=== PATIENT | female | born 1990 | race Caucasian/White ===

== ENCOUNTER 2016-04-15 10:58 | Outpatient (CLI) | payer OTHER | END 2016-04-15 10:59 | disposition home or self-care (01) | DX: Z13.29 Encounter for screening for other suspected endocrine disorder (principal) ==

== ENCOUNTER 2016-05-15 09:14 | Outpatient (CLI) | payer OTHER | END 2016-05-15 09:15 | disposition home or self-care (01) | DX: Z36 Encounter for antenatal screening of mother (principal) ==

== ENCOUNTER 2016-05-29 10:33 | Outpatient (CLI) | payer OTHER | END 2016-05-29 10:34 | disposition home or self-care (01) | DX: Z36 Encounter for antenatal screening of mother (principal); Z84.81 Family history of carrier of genetic disease ==

== ENCOUNTER 2016-08-07 07:39 | Outpatient (CLI) | payer OTHER | END 2016-08-07 07:40 | disposition home or self-care (01) | DX: Z36 Encounter for antenatal screening of mother (principal) ==

== ENCOUNTER 2016-08-28 08:29 | Outpatient (CLI) | payer OTHER ==
[2016-08-28 08:35] LABS: HCT - HEMATOCRIT 35.5 % (37.0-47.0); HGB - HEMOGLOBIN 11.9 g/dL (12.0-16.0); MEAN CORPUSCULAR HGB CONC 33.5 g/dL (32.0-36.0); MEAN CORPUSCULAR VOLUME 80.8 fL (81.0-99.0); MEAN PLATELET VOLUME 6.6 fL (7.9-10.8); RED BLOOD COUNT 4.39 10^6/uL (4.20-5.40); RED CELL DISTRIBUTION WIDTH 13.7 % (12.0-15.0); WHITE BLOOD COUNT 12.4 x10^3/uL (4.8-10.8)
[2016-08-28 09:53] LABS: THYROID STIMULATING HORMONE 0.76 uIU/mL (0.34-5.60)
--- NOTE | 2016-08-28 10:44 | Ultrasound Report ---
THYROID ULTRASOUND: 08/28/2016 CLINICAL INDICATION: Followup goiter. COMPARISON: 11/08/2015 TECHNIQUE: Real-time scanning was performed with sales representative advertising static images obtained. FINDINGS: The right lobe now measures 6.1 x 3.2 x 2.5 cm, and the left lobe measures 5.7 x 2.6 x 2.3 cm. The isthmus measures 5 mm. The left lobe again demonstrates diffuse heterogeneity. The previously noted nodule in the right lobe has increased in size, now measuring 3.3 x 2.8 x 2.4 cm (previously 2.9 x 2.4 x 2.1 cm). Nodularity in the isthmus appears stable. IMPRESSION: INCREASE IN SIZE OF THE LARGEST NODULE IN THE LOWER POLE OF THE RIGHT LOBE. STABLE DIFFUSE MULTINODULAR CHANGES IN THE LEFT LOBE. JOB #: [id number] EXT JOB #: [id number] LILY
== END 2016-08-28 08:30 | disposition home or self-care (01) ==
LOC: DI 08:29
PROVIDERS: ATTEND Obstetrics & Gynecology
DX: E04.2 Nontoxic multinodular goiter (principal)
CPT/HCPCS: 36415; 76536; 82950; 84439; 84443; 84481; 86850

== ENCOUNTER 2016-11-19 17:00 | Outpatient (CLI) | payer OTHER | END 2016-11-19 17:01 | LOC: LAB.R 17:00 | PROVIDERS: ATTEND Obstetrics & Gynecology | DX: Z36 Encounter for antenatal screening of mother (principal) | CPT/HCPCS: 87081 ==

== ENCOUNTER 2016-12-05 07:26 | Inpatient (IN) | payer OTHER ==
[2016-12-05] MEDS ORDERED: ACETAMINOPHEN 325 MG TABLET PO PRN (07:30)
[2016-12-05] MEDS ORDERED: fentaNYL 100 MCG/2 ML VIAL IVP PRN (07:30)
[2016-12-05] MEDS ORDERED: SODIUM CHLORIDE FLUSH 0.9% 10 ML SYRINGE IVP PRN (07:30)
[2016-12-05] MEDS ORDERED: ONDANSETRON 4 MG/2 ML VIAL IVP PRN ×2 (07:30→15:39)
--- NOTE | 2016-12-05 07:33 | HISTORY & PHYSICAL EXAMINATION ---
DATE OF ADMISSION: 12/05/2016 DATE OF ADMISSION/SURGERY: 12/05/2016. IDENTIFICATION: A 26-year-old G2, P1-0-0-1 with a 38 and 0/7th week intrauterine , EDC is 12/18/2016 consistent with a 9 week ultrasound. HISTORY OF PRESENT ILLNESS: This is a patient of [facility] who presents today for her routine visit. She has been having consistent visits with us since 9 weeks gestation. Patient's history is significant for chronic hypertension. With her first , she was induced at 37 weeks secondary to gestational hypertension. Of note, she did have a shoulder dystocia and the baby did require prolonged resuscitation. The patient felt that the baby had and she was not given proper education into the status of the baby. Because of this she has had significant anxiety throughout this . Her baby, Kaela, did well, did not have any shoulder fracture nor other neurological problems from delivery. At today's visit the patient has been anxious appropriately. She has been increased on her sertraline to 50 mg 1 tab p.o. daily. Baby boy, Tung, has been moving well. She denies any loss of fluid or vaginal bleeding. She has been having irregular contractions. The patient has been sleeping quite poorly the last few days. On today's visit, her blood pressure has been noted to be elevated. It was 148/102 and then repeat 10 minutes later is 138/98. She denies any preeclampsia symptoms including visual changes, headaches, or right upper quadrant pain. On examination, her cervix was 3 cm dilated, 60% effaced, and -2 station. On ultrasound, the baby is vertex with an ALFONZO of 17.68 cm. EFW is 3419 grams or 7 pounds 9 ounces. I discussed with the patient that given her recent elevation in her blood pressure that we should proceed with induction of labor. She is in agreement with that and we will plan for induction of labor on 2016. Unfortunately, since we have 3 patients, we do not have the nursing staff to induce her. She is to come in sooner, however, should she have any signs of superimposed preeclampsia or labor. PAST MEDICAL HISTORY: 1. Gestational hypertension. 2. related GERD. 3. Multinodular thyroid. PAST SURGICAL HISTORY: None. ALLERGIES: NO KNOWN DRUG ALLERGIES. MEDICATIONS: 1. Sertraline 50 mg. 1 tab p.o. daily. 2. vitamins 1 tab p.o. daily. 3. Zantac 150 mg 1 tab p.o. BID. SOCIAL HISTORY: She denies any tobacco, alcohol or illicit drug use. The patient is to Yobani and they have a 3-year-old daughter, Kaela. This is a male with anticipated name of [facility] is her pharmacy of choice. PAST OBSTETRICAL HISTORY: One term vaginal delivery at 37 weeks with shoulder dystocia. Induction secondary to gestational hypertension. The baby girl, Kaela, weighed 3317 grams. She did receive an epidural for pain relief. PAST GYNECOLOGICAL HISTORY: She denies any abnormal Pap smears or sexually transmitted diseases. The patient has had a recurrent left Bartholin cyst abscess. She underwent an excision of the cyst and so far has been asymptomatic. FAMILY HISTORY: Her sister has asthma and cystic fibrosis. REVIEW OF SYSTEMS: She denies any diabetes or thyroid issues. She only has hypertension in . Otherwise, within normal limits. OBJECTIVE: VITAL SIGNS: Weight is 119 pounds. Height is 64 inches. BMI of 37.6, blood pressure 139/98. GENERAL: The patient is a well-developed, well-nourished female in no apparent distress. She is alert and oriented x3. HEENT: Within normal limits. She does wear glasses. CARDIOVASCULAR: Rate is regular, no murmurs or rubs. PULMONARY: Lungs clear to auscultation bilaterally. ABDOMEN: Gravid, nontender. LABORATORY DATA: labs reveal she is B positive, GC and chlamydia are negative, thyroid function testing is within normal limits, RPR nonreactive, Hep B surface antigen is negative, HIV is negative, rubella immune, 1 hr GTT 133 , and GBS is negative. anatomical survey ultrasound is consistent with dates and within normal limits, posterior placenta, cervical length is 4.7 cm. ALFONZO is 9.3 cm and a 3 vessel umbilical cord is noted. ASSESSMENT: 1. A 26-year-old G2, P1-0-0-1 with a 38-1/7-week intrauterine . 2. Chronic hypertension recently elevated. 3. Favorable cervix. 4. History of shoulder dystocia. PLAN: 1. Will proceed to Pitocin induction of labor tomorrow on 12/05/2016. 2. Epidural for pain control. 3. Expect spontaneous vaginal delivery, but prepare for shoulder dystocia. JOB #: [id number] EXT JOB #:[id number] MTDD
[2016-12-05 08:02] LABS: BASOPHILS % (AUTO) 0.5 %; EOSINOPHILS # (AUTO) 0.3 10^3/uL (0.0-0.7); EOSINOPHILS % (AUTO) 2.7 %; HCT - HEMATOCRIT 37.4 % (37.0-47.0); HGB - HEMOGLOBIN 12.3 g/dL (12.0-16.0); LYMPHOCYTES # (AUTO) 2.3 10^3/uL (1.5-3.5); LYMPHOCYTES % (AUTO) 23.8 %; MEAN CORPUSCULAR HEMOGLOBIN 26.6 pg (27.0-31.0); MEAN CORPUSCULAR VOLUME 80.7 fL (81.0-99.0); MEAN PLATELET VOLUME 6.5 fL (7.9-10.8); MONOCYTES # (AUTO) 0.6 10^3/uL (0.0-1.0); NEUTROPHILS # (AUTO) 6.5 10^3/uL (1.5-6.6); RED BLOOD COUNT 4.63 10^6/uL (4.20-5.40); RED CELL DISTRIBUTION WIDTH 14.8 % (12.0-15.0); UNCORRECTED WHITE BLOOD COUNT 9.6 x10^3/uL; WHITE BLOOD COUNT 9.6 x10^3/uL (4.8-10.8)
[2016-12-05] MEDS: LACTATED RINGERS 1,000 ML IV SCH ×2 (08:56→20:05)
[2016-12-05] MEDS ORDERED: OXYTOCIN/LACTATED RINGERS 250 ML IV SCH (09:00)
[2016-12-05] MEDS ORDERED: SERTRALINE 50 MG TABLET PO SCH (09:00)
--- NOTE | 2016-12-05 09:13 | PROVIDER PROGRESS NOTE ---
Labor Progress Note - Uterine Monitoring Uterine Monitoring Mode: positive: External toco Contraction Frequency (min/apart): >Q6 min Contraction Intensity: positive: Mild to moderate Uterine Resting Tone: positive: Soft - Monitoring Monitor Mode: positive: External ultrasound Heart Rate Variability: positive: Moderate (6-25 bmp) Accelerations: positive: Present, 15x15 Decelerations: positive: None Strip Review: positive: Category I - Vaginal Exam Dilation (in cm): 3 Effacement (%): 70 Station: -2 Cervical Position: Anterior - Labor Progress Note Labor Progress Note/Additional Text: 26 yo with a 38w1d IUP Chronic HTN, no signs of superimposed pre-eclampsia Reassuring maternal and status Pitocin started Epidural PRN Expect but prepare for shoulder dystocia Labs, EKG, Meds, Allergy - Lab Results Fish Bones: 12/05/16 07:52 Other Lab Results: Lab Results x24hrs 12/05/16 Range/Units 07:52 WBC 9.6 (4.8-10.8) x10^3/uL RBC 4.63 (4.20-5.40) 10^6/uL Hgb 12.3 (12.0-16.0) g/dL Hct 37.4 (37.0-47.0) % MCV 80.7 L (81.0-99.0) fL MCH 26.6 L (27.0-31.0) pg MCHC 33.0 (32.0-36.0) g/dL RDW 14.8 (12.0-15.0) % Plt Count 169 (130-450) 10^3/uL MPV 6.5 L (7.9-10.8) fL Neut # 6.5 (1.5-6.6) 10^3/uL Lymph # 2.3 (1.5-3.5) 10^3/uL [place] # 0.6 (0.0-1.0) 10^3/uL Eos # 0.3 (0.0-0.7) 10^3/uL Baso # 0.0 (0.0-0.1) 10^3/uL Absolute Nucleated RBC 0.00 x10^3/uL Nucleated RBCs 0.0 /100WBC
--- NOTE | 2016-12-05 11:03 | PROVIDER PROGRESS NOTE ---
Labor Progress Note - Uterine Monitoring Uterine Monitoring Mode: positive: External toco Contraction Frequency (min/apart): Q4 min Contraction Intensity: positive: Moderate - Monitoring Monitor Mode: positive: External ultrasound Heart Rate Baseline: 130 Heart Rate Variability: positive: Moderate (6-25 bmp) Accelerations: positive: Present, 15x15 Decelerations: positive: None Strip Review: positive: Category I - Labor Progress Note Labor Progress Note/Additional Text: 26 yo with a 39w1d IUP Currently controlled chronic HTN ROM- clear On pitocin- 7 millunits/min Epidural PRN Continue pitocin Expect but prepare for shoulder dystocia
--- NOTE | 2016-12-05 12:30 | PROVIDER PROGRESS NOTE ---
Labor Progress Note - Uterine Monitoring Uterine Monitoring Mode: positive: External toco Contraction Frequency (min/apart): Q3-4 (pit 13 milliunits/min) Contraction Intensity: positive: Moderate to strong Uterine Resting Tone: positive: Soft - Monitoring Monitor Mode: positive: External ultrasound Heart Rate Variability: positive: Moderate (6-25 bmp) Accelerations: positive: Present, 15x15 Decelerations: positive: None Strip Review: positive: Category I - Labor Progress Note Labor Progress Note/Additional Text: 26 yo with a 38w1d IUP AROM- clear Stable chronic HTN Continue pitocin Epidural PRN Expect
[2016-12-05] MEDS ORDERED: SODIUM CHLORIDE FLUSH 0.9% 10 ML SYRINGE IVP SCH (14:00)
--- NOTE | 2016-12-05 14:52 | PROVIDER PROGRESS NOTE ---
Labor Progress Note - Uterine Monitoring Uterine Monitoring Mode: positive: External toco Contraction Frequency (min/apart): Q2 min (pit at 17 milliunits/min) Contraction Intensity: positive: Strong Uterine Resting Tone: positive: Soft - Monitoring Monitor Mode: positive: External ultrasound Heart Rate Baseline: 140's Heart Rate Variability: positive: Moderate (6-25 bmp) Accelerations: positive: Present, 15x15 Decelerations: positive: None Strip Review: positive: Category I - Vaginal Exam Dilation (in cm): 6 Effacement (%): 70 Station: -2 Cervical Position: Midposition - Labor Progress Note Labor Progress Note/Additional Text: 26 yo with a 38w1d IUP Controlled chronic HTN Reassuring maternal and status Active labor Continue pitocin Epidural now Expect
[2016-12-05] MEDS ORDERED: fent/BUPIV 2 MCG/0.125% 250 ML EP ONE (15:29)
--- NOTE | 2016-12-05 15:37 | PROVIDER PROGRESS NOTE ---
Labor Progress Note - Uterine Monitoring Uterine Monitoring Mode: positive: External toco Contraction Frequency (min/apart): Q2-3 (Pit 17 milliunits/min) Contraction Intensity: positive: Strong Uterine Resting Tone: positive: Soft - Monitoring Monitor Mode: positive: External ultrasound Heart Rate Baseline: 130's Heart Rate Variability: positive: Moderate (6-25 bmp) Accelerations: positive: Present, 15x15 Decelerations: positive: None Strip Review: positive: Category I - Labor Progress Note Labor Progress Note/Additional Text: 26 yo with a 38w1d IUP Active labor Reassuring heart tones Stable chronic HTN Continue pitocin Epidural in place and working well Expect but prepare for shoulder dystocia L&D Objective - Patient Data Reviewed Vital Signs: Yes Weight: Weight 12/03/16 12/04/16 12/05/16 23:59 23:59 23:59 Weight (kg) 99.337 kg Intake & Output: Intake and Output Totals x24h 12/03/16 12/04/16 12/05/16 23:59 23:59 23:59 Intake Total 800 Balance 800 - Lab Results Lab Results: 12/05/16 07:52 Other Lab Results: Lab Results x24hrs 12/05/16 Range/Units 07:52 WBC 9.6 (4.8-10.8) x10^3/uL RBC 4.63 (4.20-5.40) 10^6/uL Hgb 12.3 (12.0-16.0) g/dL Hct 37.4 (37.0-47.0) % MCV 80.7 L (81.0-99.0) fL MCH 26.6 L (27.0-31.0) pg MCHC 33.0 (32.0-36.0) g/dL RDW 14.8 (12.0-15.0) % Plt Count 169 (130-450) 10^3/uL MPV 6.5 L (7.9-10.8) fL Neut # 6.5 (1.5-6.6) 10^3/uL Lymph # 2.3 (1.5-3.5) 10^3/uL [place] # 0.6 (0.0-1.0) 10^3/uL Eos # 0.3 (0.0-0.7) 10^3/uL Baso # 0.0 (0.0-0.1) 10^3/uL Absolute Nucleated RBC 0.00 x10^3/uL Nucleated RBCs 0.0 /100WBC - Current Medication Orders Current Medication Orders: Current Medications Generic Name Dose Route Start Last Admin Trade Name Freq PRN Reason Stop Dose Admin Lactated Ringer's 1,000 mls @ 100 mls/hr 12/05/16 08:00 12/05/16 08:56 Lr IV 100 mls/hr .Q10H KAYCEE Administration Oxytocin/Lactated Ringer's 250 mls @ 1 mls/hr 12/05/16 09:00 12/05/16 13:05 Pitocin/Lactated Ringers IV 17 milliunit/min TITR KAYCEE Titration Protocol 1 MILLIUNIT/MIN Ranitidine HCl 150 mg 12/05/16 09:00 12/05/16 10:10 Zantac PO Not Given BID KAYCEE Sertraline HCl 50 mg 12/05/16 09:00 12/05/16 10:10 Zoloft PO Not Given DAILY KAYCEE Sodium Chloride 10 ml 12/05/16 07:30 12/05/16 08:56 Normal Saline Flush 0.9% IVP 10 ml PRN PRN Administration NEEDED PER PROVIDER ORDERS
[2016-12-05] MEDS ORDERED: NALOXONE 0.4 MG/ML VIAL IVP PRN (15:39)
[2016-12-05] MEDS ORDERED: diphenhydrAMINE INJ 50 MG/ML VIAL IVP PRN (15:39)
[2016-12-05] MEDS ORDERED: ePHEDrine 50 MG/ML VIAL IVP PRN (15:39)
[2016-12-05] MEDS ORDERED: LACTATED RINGERS 500 ML IV ONE (15:39)
[2016-12-05] MEDS ORDERED: NALBUPHINE 20 MG/ML AMP IVP PRN (15:39)
[2016-12-05] MEDS ORDERED: fent/BUPIV 2 MCG/0.125% 250 ML EP PRN (15:39)
[2016-12-05] MEDS ORDERED: METOCLOPRAMIDE 10 MG/2 ML VIAL IVP PRN (15:39)
--- NOTE | 2016-12-05 18:14 | PROVIDER PROGRESS NOTE ---
Labor Progress Note - Uterine Monitoring Uterine Monitoring Mode: positive: External toco Contraction Frequency (min/apart): Q2-4 min Contraction Intensity: positive: Moderate to strong Uterine Resting Tone: positive: Soft - Monitoring Monitor Mode: positive: External ultrasound Heart Rate Baseline: 130's Heart Rate Variability: positive: Moderate (6-25 bmp) Accelerations: positive: Present, 15x15 Decelerations: positive: None Strip Review: positive: Category I - Vaginal Exam Dilation (in cm): 8 Effacement (%): 70 Station: -1 Cervical Position: Anterior - Labor Progress Note Labor Progress Note/Additional Text: 26 yo with a 38w1d IUP Active labor Reassuring and maternal status Controlled chronic hypertension Epidural in place and working well Bladder emptied Patient resting Continue pitocin Expect but prepare for shoulder dystocia
--- NOTE | 2016-12-05 20:02 | PROVIDER PROGRESS NOTE ---
Labor Progress Note - Uterine Monitoring Uterine Monitoring Mode: positive: External toco Contraction Frequency (min/apart): Q2 min (13 milliunits/min) Contraction Intensity: positive: Moderate to strong Uterine Resting Tone: positive: Soft - Monitoring Monitor Mode: positive: External ultrasound Heart Rate Variability: positive: Moderate (6-25 bmp) Accelerations: positive: Present, 15x15 Decelerations: positive: None Strip Review: positive: Category I - Vaginal Exam Dilation (in cm): 8 Effacement (%): 70 Station: -1 - Labor Progress Note Labor Progress Note/Additional Text: 26 yo with a 38w1d IUP Active labor Stable chronic hypertension Epidural in place and working well Pitocin decreased after late decel noted. Decels resolved after moving positions with bottom higher and decreased pitocin Concerning that baby is still high in the pelvis; baby probably OP Continue to rotate Continue pitocin Continue epidural Watch descent carefully
[2016-12-05] MEDS ORDERED: MINERAL OIL LIGHT 10 ML MC ONE (21:22)
[2016-12-05] MEDS ORDERED: LIDOCAINE 1% 50 ML MDV ONE (21:22)
--- NOTE | 2016-12-05 22:29 | DELIVERY NOTE ---
Delivery Note - Labor Labor: positive: Augmented by oxytocin, Induced by ARM, Induced by oxytocin - Delivery Method Infant Delivery Method: positive: Other (Vaginal delivery with 30 second shoulder dystocia. Relieved with Huy and posterior arm extraction of the right arm. [place].) - Presentation Presentation: positive: Vertex, [place] - left occiput anterior - Nuchal Cord Nuchal Cord: positive: None - Amniotic Fluid Description Amniotic Fluid Description: positive: Clear - Episiotomy Type Episiotomy Type: positive: None - Laceration Laceration: positive: None - Delivery Outcome Delivery Outcome: positive: Livebirth - [place] : positive: Placed in direct skin contact with mother, Bulb syringe, Stimulated sex: positive: Male : 7 : 9 - Cord Cord: positive: 3 vessels - Placenta Placenta: positive: Intact, Spontaneous - Estimated Blood Loss Estimated Blood Loss (in cc): 250 - Post Delivery Events Post Delivery Events: positive: No post delivery events - Delivery Comments (Free Text/Narrative) Delivery Comments (Free Text/Narrative): 26 yo with a 38w1d IUP presented to L&D for an induction of labor. BP's elevated from yesterday's OB visit. Highest diastolic in low 100's. Initial CVE 2/60/-2 so pitocin started. AROM with clear fluid. Epidural for pain control. Baby OP so patient rotated to extreme left side, then hands and knees. Baby finally descended after rotation. head delivered [place] with 30 second shoulder dystocia; relieved with Huy and posterior arm extraction of right arm. No nuchal cord. Baby bulb suctioned and stimulated. Apgars 7/9. Weight 8 lbs 7.7 oz or 3848 gm. Placenta delivered spontaneously, intact, 3VC. No vaginal lacerations. EBL 250 mL. No complications.
[2016-12-05] MEDS ORDERED: HYDROcod/ACETAM 5/325 MG TABLET PO PRN (22:31)
[2016-12-05] MEDS ORDERED: WITCH HAZEL/GLYCERIN 1 EACH MED..PAD TOP PRN (22:31)
[2016-12-05] MEDS ORDERED: HYDROCORTISONE 1% CREAM 28 GM TUBE PR PRN (22:31)
[2016-12-05] MEDS ORDERED: MAGNESIUM HYDROXIDE 2,400 MG/30 ML UDC PO PRN (22:31)
[2016-12-05] MEDS ORDERED: HYDROCORTISONE/PRAMOXINE 10 GM PR PRN (22:31)
[2016-12-05] MEDS ORDERED: OXYTOCIN/LACTATED RINGERS 250 ML IV ONE (22:31)
[2016-12-06] MEDS ORDERED: SIMETHICONE CHEW 80 MG TABLET PO SCH (06:00)
[2016-12-06] MEDS ORDERED: CELECOXIB 100 MG CAPSULE PO ONE ×2 (06:06→06:08)
[2016-12-06] MEDS: CELECOXIB 100 MG CAPSULE PO SCH ×2 (06:25→06:26)
[2016-12-06] MEDS ORDERED: DOCUSATE SODIUM 100 MG CAPSULE PO SCH (09:00)
[2016-12-06] MEDS ORDERED: RANITIDINE 150 MG PO SCH (09:00)
[2016-12-06] MEDS ORDERED: IBUPROFEN 600 MG TABLET PO PRN (10:43)
[2016-12-06 14:20] VITALS: BP 126/73
--- NOTE | 2016-12-06 14:28 | PROVIDER PROGRESS NOTE ---
Subjective - General Admit Date: 12/05/16 Procedure Date: 12/05/16 Post Op Days: 1 Procedure Performed: - Review of Systems General: positive: No symptoms (Pain 0/10. Frank LOWE or scotoma. Breast feeding. MIrena for contraception) Gastrointestinal: positive: Flatus Genitourinary: positive: No symptoms Psychiatric: positive: No symptoms. negative: Confusion Objective - Patient Data Reviewed Vital Signs: Yes Vital Signs: Vital Signs x48h Temp Pulse Resp BP Pulse Ox 12/06/16 14:20 126/73 12/06/16 08:45 36.5 C 98 18 148/87 H 100 Weight: Weight 12/04/16 12/05/16 12/06/16 23:59 23:59 23:59 Weight (kg) 99.337 kg Intake & Output: Intake and Output Totals x24h 12/04/16 12/05/16 12/06/16 23:59 23:59 23:59 Intake Total 3250 1200 Output Total 105 1850 Balance 3145 -650 - Lab Results Lab Results: 12/05/16 07:52 - Current Medications Current Medications: Current Medications Generic Name Dose Route Start Last Admin Trade Name Freq PRN Reason Stop Dose Admin Docusate Sodium 100 mg 12/06/16 09:00 12/06/16 08:42 Colace 100mg Capsule PO 100 mg BID KAYCEE Administration Hydrocortisone/Pramoxine 1 spray 12/05/16 22:31 12/06/16 00:45 Epifoam [place] 1 spray QID PRN Administration Hemorrhoids Ibuprofen 600 mg 12/06/16 10:43 12/06/16 10:54 Motrin PO 600 mg Q6HR PRN Administration PAIN Ranitidine [Zantac] 1 each 12/06/16 09:00 12/06/16 12:47 150 Mg PO Not Given DAILY KAYCEE Simethicone 80 mg 12/06/16 06:00 12/06/16 06:11 Mylicon PO Not Given TID [facility] Witch Aisha/Glycerin 1 each 12/05/16 22:31 12/06/16 00:53 Tucks TOP 1 each QID PRN Administration Hemorrhoids - Physical Exam General Appearance: positive: No acute distress, Alert Eyes Bilateral: positive: Normal inspection Respiratory: positive: Chest non-tender, No respiratory distress, Breath sounds nml Cardiovascular: positive: Regular rate & rhythm, No murmur Abdomen: positive: Non-tender, Nml bowel sounds, Mass (at U) Skin: positive: Color nml, No rash, Warm, Dry Extremities: negative: Calf tenderness, Perfecto's sign/cords Neurologic/Psychiatric: positive: Oriented x3 Impression/Plan - Problem List Problem List: 1. Gestational HTN well controlled without medications. Discussed with the pt the possibility of late onset PreE. 2. S/P . Doing well. 3. Reviewed Breast feeding, Mastitis, need for contraception. plans to use IUD. 4. Discharge meds: Motrin 600 mg Colace 100 mg bid PRN Continue Zoloft 50mg Continue Zantac 5. Pelvic rest 6 weeks 6. reviewed PP Depression. Pt has family around for support.
--- NOTE | 2016-12-06 14:43 | Discharge Plan ---
Discharge Plan Disposition: 01 Home, Self Care Condition: Good Diet: Regular Activity Restrictions: Pelvic rest 6 weeks Shower Restrictions: No Driving Restrictions: No No Smoking: If you smoke, Please STOP! Call for help. Follow-up with: Roxana Singh MD [Primary Care Provider] - Jennifer Queen DO [Provider Admit Priv/Credential] -
--- NOTE | 2016-12-06 16:28 | Labor Flowsheet ---
Labor Flowsheet Datetime Report Generated by CPN: 12/06/2016 16:28 Datetime: 12/06/2016 14:19 VITAL SIGNS NBP Sys/Trudy/Mean (mmHg): 126 : 73 : 84 Pulse: 84 Datetime: 12/06/2016 08:41 Temperature (F): 97.7 Temperature (C): 36.5 Temperature (C): 36.5 Datetime: 12/05/2016 21:25 Stage of : Datetime: 12/05/2016 21:24 Comments: Delivery, viable male Patient Care Comments: VD with 30sec head to body shoulder dystocia, baby to Mom's chest Datetime: 12/05/2016 21:20 UTERINE ACTIVITY Monitor Mode: External Monitor Interventions for UA: [place] Adjusted Frequency (min): 2-2.5 Quality: Strong Duration (sec): 50-60 Pattern: Normal: <= 5 Contractions in 10 Minutes Resting Tone (Palpate): Relaxed Pitocin Checklist: At Least 1 Acceleration of 15 bpm x 15 Seconds in 30 Minutes or Adequate Variabi lity; No More than 1 Late Deceleration Occurred in Past 30 Minutes; No More than 2 Variable Decelerat ions > 60 Seconds in Duration and decreasing >60 bpm in 30 minutes; No More than 5 Uterine Contractio ns in 10 Minutes for any 20 Minute Interval; Uterus Palpates Soft between Contractions ASSESSMENT A Monitor Mode: External US Monitor Interventions for FHR: Ultrasound Adjusted FHR Baseline Rate : 130 FHR Baseline Changes: No Baseline Change Variability: Moderate 6-25 bpm Accelerations: 10X10 Decelerations: Variable Actions for Decelerations: Oxygen Applied; Provider Notified Category: Category II Datetime: 12/05/2016 21:15 TEACHING Instructional Method: Verbal; Patient Instructed; Family/Support Person Instructed; Verbalized Unde rstanding Labor/Induction: Pushing Methods Datetime: 12/05/2016 21:14 VAGINAL EXAM Dilatation (cm): 10.0 Effacement (%): 100 Station: 2 Exam by: Dr Bret Amniotic Fluid Color: Clear Datetime: 12/05/2016 21:00 Vital Sign Comments: dependent arm Pain Assessment Comments: tolerating pain level at this time; using self-bolus as needed; feeling p ressure vs. pain MATERNAL ASSESSMENT Level of Consciousness: Fully Conscious DTR's/Clonus: DTRs 2+ Headache: Denies MEDICATIONS Pitocin (milliunits): remains @ 13mu/min COMMUNICATION Communication: Provider at Bedside Provider Notified (Name): Dr Queen Notification Reason: Status; Labor Status Nurse Giving Report: [facility] Communication Comments: OB remaining at BS to assistant women's rowing coach pt thru UCs; monitor progress of pt and FHR tra cing LaborFlag: Labor Datetime: 12/05/2016 20:51 Oxygen Method: Non-Rebreather Datetime: 12/05/2016 20:46 Oxygen Amount (LPM): 10 Datetime: 12/05/2016 20:39 Vaginal Bleeding: Normal Show Cervix, Consistency: Soft Cervix, Position: Anterior Vaginal Exam Comments: well applied Datetime: 12/05/2016 20:30 Patient Position/Activity: Left Lateral Datetime: 12/05/2016 19:42 Respirations: 18 PAIN Pain Scale: 5 Pain Presence: Intermittent Pain Type: Contraction Pain Location: Abdomen; Back Pain Goal: 5 Pain Relief Measures: Epidural Given; Comfort Measures Pain Coping: Breathing Through Contractions Anesthesia Level Check: T10- Umbilicus Datetime: 12/05/2016 19:10 SpO2 (%): 100 Datetime: 12/05/2016 19:02 Membrane Status: Ruptured Breath Sounds, Left: Clear and Equal Breath Sounds, Right: Clear and Equal Nausea/Vomiting: Denies RUQ Epigastric Pain: Denies Maternal Comments: has epidural in place; decreased sensation in LEs Comfort Measures: Breathing/Relaxation; Coaching; Family Support ANESTHESIA Anesthesia Plans: Epidural Plan of Care: Plan of Care Discussed Datetime: 12/05/2016 17:44 I/O Interventions: Straight Cath (ml) @ 5 Datetime: 12/05/2016 17:00 Temperature Route: Oral Datetime: 12/05/2016 16:45 Anesthesia Comments: very comfortable feeling only slight pelvic pressure during contractions Datetime: 12/05/2016 15:30 Epidural Procedure: Loading Dose; Completed Epidural Procedure Other: Pump Started Datetime: 12/05/2016 15:19 Epidural Positioning: Sitting Datetime: 12/05/2016 15:10 PROCEDURE TIME OUT Procedure Verify: Correct Patient Identity; Correct Side and Site are Marked; Accurate Procedure Co nsent Form; Agreement on Procedure to be Done; Correct Patient Position; Safety Precautions Based on Patient History or Medication Use Datetime: 12/05/2016 13:00 Hygiene: Underpad Changed Datetime: 12/05/2016 10:05 Membranes Ruptured Date/Time: 12/05/2016 10:05 Membranes Rupture Method: Artificial Amniotic Fluid Amount: Small Amniotic Fluid Odor: Normal Datetime: 12/05/2016 08:30 PATIENT CARE IV/Blood Work: IV Started; IV Infusing per Order; New IV Bag Hung Provider Reviewed Strip: Yes Strip Reviewed by: Dr. Queen
[2016-12-06] MEDS ORDERED: SERTRALINE 50 MG PO SCH (21:00)
--- NOTE | 2016-12-08 06:42 | DISCHARGE SUMMARY ---
DATE OF ADMISSION: 12/05/2016 DATE OF DISCHARGE: 12/06/2016 GESTATION DISCREPANCY ADMITTING DIAGNOSES 1. A 38.1-week gestation. 2. Suspected macrosomia. 3. Gestational hypertension. DISCHARGE DIAGNOSES 1. A 38.1-week gestation. 2. Suspected macrosomia. 3. Gestational hypertension. 4. Mild shoulder dystocia. shoulder dystocia. PROCEDURES 1. Pitocin induction. 2. Artificial rupture of membranes. 3. Epidural. 4. Spontaneous vaginal delivery. PRESENTING HISTORY: The patient is a 26-year-old, G2, P1 female who is 38.0 weeks. She had a due date of 18 December, consistent with a 9-week ultrasound. She presented for a routine visit, a t which time she was noted to have some chronic hypertension. With her first , she was induc ed at 37 weeks secondary to gestational hypertension. She had a shoulder dystocia with that delivery, and she was very concerned about the recurrence of this problem. Her estimated weight was not ed to be within normal limits. OBSTETRIC HISTORY: Her OB history was significant with some depression, for which she received sertr genna 50 mg daily. Her labs showed her to be B-positive; GC/chlamydia, hep B, RPR, and HIV were all n egative. She was rubella immune. Her 50 gram Glucola was 133. Her examination on admission showed a cervix that was 2 cm, 60%, -2, soft. LABORATORIES: Patient's CBC on admission showed a white count of 9.6, hemoglobin was 12.3, hematocrit 37.4, platelets were 169. HOSPITAL COURSE: Patient was admitted, Pitocin was initiated, and she was artificially ruptured; amni otic fluid was noted to be clear. She had an epidural placed for labor analgesia. As she approached stephany lisa, she was noted to be occiput posterior and was treated with lateral rest, as well as knee-evin st, at which time the rolled around to occiput anterior. She had a 9-minute second stage of la bor, at which time the head delivered, and she had a 30-second mild shoulder dystocia. This responded to Huy maneuvers. A live male infant with Apgars of 7 and 9, weighing 8 pounds 8 ounces was de livered over an intact perineum. Her course has been unremarkable, with the exception of a few elevated blood pressures. Th e maximum was noted to be 148/78. This afternoon, blood pressure was 126/73. The has been then discharged to home, and she is requesting to go home also. She is being discharged on medications of: 1. Motrin 600 mg. 2. Colace 100 mg. 3. Zoloft 50 mg; as well as 4. Zantac 150 mg. She has been instructed regarding and the risks of mastitis, as well as that this is no t adequate contraception. She is aware to watch for evidence of swelling, headaches, and the possibil ity of delayed onset of preeclampsia. She plans to use an IUD for contraception. She is instructed to be at pelvic rest and return to clini c in 6 weeks. Also discussed the possibility of blues. At this time, she has her sister an d mother to help with support. JOB #: [id number] EXT JOB #:[id number]
== END 2016-12-06 16:26 | disposition home or self-care (01) | DRG 775 ==
LOC: LAB 07:26 → FBP 07:29 → WFO 07:38
PROVIDERS: ADMIT Obstetrics & Gynecology; ATTEND Obstetrics & Gynecology
PROC: 10E0XZZ Delivery of Products of Conception, External Approach (ICD-10-PCS; principal; 2016-12-05)
PROC: 3E033VJ Introduction of Other Hormone into Peripheral Vein, Percutaneous Approach (ICD-10-PCS; 2016-12-05)
PROC: 10907ZC Drainage of Amniotic Fluid, Therapeutic from Products of Conception, Via Natural or Artificial Opening (ICD-10-PCS; 2016-12-05)
DX: O13.4 Gestational [pregnancy-induced] hypertension without significant proteinuria, complicating childbirth (principal); O66.0 Obstructed labor due to shoulder dystocia; O64.0XX0 Obstructed labor due to incomplete rotation of fetal head, not applicable or unspecified; O36.63X0 Maternal care for excessive fetal growth, third trimester, not applicable or unspecified; O99.344 Other mental disorders complicating childbirth; F32.9 Major depressive disorder, single episode, unspecified; Z37.0 Single live birth; Z3A.38 38 weeks gestation of pregnancy
CPT/HCPCS: 85025

== ENCOUNTER 2017-01-19 13:13 | Outpatient (CLI) | payer OTHER ==
[2017-01-19 14:01] LABS: BASOPHILS % (AUTO) 0.3 %; EOSINOPHILS # (AUTO) 0.4 10^3/uL (0.0-0.7); EOSINOPHILS % (AUTO) 2.7 %; HCT - HEMATOCRIT 39.4 % (37.0-47.0); HGB - HEMOGLOBIN 13.1 g/dL (12.0-16.0); LYMPHOCYTES # (AUTO) 2.3 10^3/uL (1.5-3.5); LYMPHOCYTES % (AUTO) 15.8 %; MEAN CORPUSCULAR HEMOGLOBIN 26.3 pg (27.0-31.0); MEAN CORPUSCULAR HGB CONC 33.2 g/dL (32.0-36.0); MEAN CORPUSCULAR VOLUME 79.1 fL (81.0-99.0); MEAN PLATELET VOLUME 6.4 fL (7.9-10.8); MONOCYTES % (AUTO) 6.5 %; NEUTROPHILS % (AUTO) 74.7 %; RED BLOOD COUNT 4.99 10^6/uL (4.20-5.40); RED CELL DISTRIBUTION WIDTH 13.6 % (12.0-15.0); UNCORRECTED WHITE BLOOD COUNT 14.8 x10^3/uL; WHITE BLOOD COUNT 14.8 x10^3/uL (4.8-10.8)
[2017-01-19 14:25] LABS: ALBUMIN/GLOBULIN RATIO 1.2 (1.0-2.2); BILIRUBIN,TOTAL 0.4 mg/dL (0.2-1.0); CALCIUM 9.3 mg/dL (8.5-10.3); CREATININE 0.7 mg/dL (0.4-1.0); POTASSIUM 3.9 mmol/L (3.5-5.0); TOTAL PROTEIN 8.1 g/dL (6.7-8.2)
[2017-01-19 15:06] LABS: THYROID STIMULATING HORMONE 0.51 uIU/mL (0.34-5.60)
[2017-01-23 17:46] LABS: TEST RESULT REPORT
== END 2017-01-19 13:14 | disposition home or self-care (01) ==
LOC: LAB 13:13
PROVIDERS: ATTEND Registered Nurse
DX: B00.1 Herpesviral vesicular dermatitis (principal); E07.9 Disorder of thyroid, unspecified
CPT/HCPCS: 36415; 80053; 81599; 84439; 84443; 84481; 85025; 86376; 86695; 86696; 86780; 86800; 87389

== ENCOUNTER 2017-10-26 17:24 | Outpatient (CLI) | payer OTHER ==
[2017-10-26 18:30] LABS: T4 (THYROXINE) 7.56 ug/dL (6.09-12.23)
[2017-10-26 18:35] LABS: FREE T4 (FREE THYROXINE) 0.76 ng/dL (0.58-1.64)
[2017-10-26 18:37] LABS: THYROID STIMULATING HORMONE 0.84 uIU/mL (0.34-5.60)
== END 2017-10-26 17:25 | disposition home or self-care (01) ==
LOC: LAB 17:24
PROVIDERS: ATTEND Registered Nurse
DX: E07.89 Other specified disorders of thyroid (principal)
CPT/HCPCS: 36415; 84436; 84439; 84443

== ENCOUNTER 2019-01-04 06:54 | Outpatient (CLI) | payer BC ==
--- NOTE | 2019-01-04 09:31 | Ultrasound Report ---
Reason: TEST POSITIVE Procedure Date: 01/04/2019 Accession Number: [id number] / [id number] Procedure: US - OB First Trimester CPT Code: FULL RESULT: EXAM: FIRST TRIMESTER OBSTETRIC ULTRASOUND (Less than 11 weeks) EXAM DATE: 01/04/2019 07:33 AM. CLINICAL HISTORY: test positive. LMP: 11/04/2018. COMPARISONS: None. TECHNIQUE: Transabdominal ultrasound examination with static image documentation. CLINICAL DATES: EGA 8 weeks 5 days with MARIA T 08/11/2019 based on LMP. ASSESSMENT: Gestational Sac: Single intrauterine. Mean gestational sac diameter: 31.7 mm = 8 weeks 3 days. Embryo: CRL (crown-rump length) 19.4 mm = 8 weeks 3 days. Cardiac activity: 169 beats per minute. Yolk sac: 3.2 mm. Amniotic fluid: Not accurately assessed at this gestational age. Early placenta: Not visible at this gestational age. Other: No perigestational fluid collection demonstrated. MATERNAL STRUCTURES: Uterus: Anteverted. Unremarkable. Cervix: Closed. Right Ovary/Adnexa: The ovary measures 4.0 x 1.9 x 2.9 cm, volume 11.5 cc. Unremarkable. Left Ovary/Adnexa: The ovary measures 3.4 x 2.3 x 3.5 cm, volume 14.3 cc. Corpus luteum is noted. Free Fluid: None. Other: None. IMPRESSION: 1. Single viable intrauterine at 8 weeks 3 days with MARIA T 08/13/2019 based on crown-rump length, which is concordant with clinical dates. 2. Assigned dating is MARIA T 08/11/2019 based on LMP. RADIA
== END 2019-01-04 06:55 | disposition home or self-care (01) ==
LOC: DI 06:54
PROVIDERS: ATTEND Obstetrics & Gynecology
DX: Z32.01 Encounter for pregnancy test, result positive (principal)
CPT/HCPCS: 76801

== ENCOUNTER 2019-01-13 15:40 | Outpatient (CLI) | payer BC ==
[2019-01-13 16:01] LABS: BASOPHILS # (AUTO) 0.1 10^3/uL (0.0-0.1); BASOPHILS % (AUTO) 0.6 %; EOSINOPHILS # (AUTO) 0.3 10^3/uL (0.0-0.7); EOSINOPHILS % (AUTO) 3.1 %; HGB - HEMOGLOBIN 12.5 g/dL (12.0-16.0); LYMPHOCYTES # (AUTO) 2.3 10^3/uL (1.5-3.5); LYMPHOCYTES % (AUTO) 27.2 %; MEAN CORPUSCULAR HEMOGLOBIN 26.9 pg (27.0-31.0); MEAN CORPUSCULAR HGB CONC 33.4 g/dL (32.0-36.0); MEAN CORPUSCULAR VOLUME 80.6 fL (81.0-99.0); MEAN PLATELET VOLUME 8.3 fL (7.9-10.8); MONOCYTES # (AUTO) 0.6 10^3/uL (0.0-1.0); MONOCYTES % (AUTO) 7.3 %; NEUTROPHILS # (AUTO) 5.2 10^3/uL (1.5-6.6); NEUTROPHILS % (AUTO) 61.3 %; PLT - PLATELET COUNT 224 10^3/uL (130-450); RED BLOOD COUNT 4.64 10^6/uL (4.20-5.40); RED CELL DISTRIBUTION WIDTH 12.2 % (12.0-15.0); WHITE BLOOD COUNT 8.5 x10^3/uL (4.8-10.8)
[2019-01-14 11:18] LABS: HEPATITIS B SURFACE ANTIGEN NON-REACTIVE (NON-REACTIVE); HEPATITIS C ANTIBODY NON-REACTIVE (NON-REACTIVE)
[2019-01-14 15:25] LABS: HIV AG/AB 4TH GEN NON-REACTIVE (NON-REACTIVE)
== END 2019-01-13 15:41 | disposition home or self-care (01) ==
LOC: LAB 15:40
PROVIDERS: ATTEND Obstetrics & Gynecology
DX: Z36.89 Encounter for other specified antenatal screening (principal)
CPT/HCPCS: 36415; 81599; 85025; 86592; 86762; 86803; 86850; 86900; 86901; 87340; 87389

== ENCOUNTER 2019-03-14 12:39 | Outpatient (CLI) | payer BC ==
[2019-03-14 15:13] LABS: THYROID STIMULATING HORMONE 0.23 uIU/mL (0.34-5.60)
[2019-03-14 15:15] LABS: FREE T4 (FREE THYROXINE) 0.77 ng/dL (0.58-1.64)
== END 2019-03-14 12:40 | disposition home or self-care (01) ==
LOC: LAB 12:39
PROVIDERS: ATTEND Obstetrics & Gynecology
DX: R94.6 Abnormal results of thyroid function studies (principal)
CPT/HCPCS: 36415; 84439; 84443

== ENCOUNTER 2019-04-07 13:40 | Outpatient (CLI) | payer BC ==
--- NOTE | 2019-04-08 02:12 | Ultrasound Report ---
Reason: SCREENING Procedure Date: 04/07/2019 Accession Number: [id number] / [id number] Procedure: US - OB Detailed Eval CPT Code: Final Report FULL RESULT: EXAM: COMPLETE OBSTETRICAL ULTRASOUND EXAM DATE: 04/07/2019 03:45 PM. CLINICAL HISTORY: anatomic survey. COMPARISON: OB DETAILED EVAL 08/07/2016 7:39 AM. TECHNIQUE: Real-time transabdominal sonographic evaluation of the fetus performed by the research study assistant. Multiple school admissions representative static images were saved for review. DATING: Established EGA 22 weeks 0 days with MARIA T 08/11/19 based on LMP. EGA 21 weeks 5 days with MARIA T 08/13/19 based on the current ultrasound. GENERAL EVALUATION Jordan . Cardiac activity: 149 bpm. movement: Visualized. Presentation: Variable. Placenta: Posterior position. No evidence for previa. Umbilical cord: 3 vessel cord. Central placental cord origin. Amniotic fluid: Subjectively normal. MVP 4.6 cm. BIOMETRY Bi-Parietal Diameter (BPD): 4.9 cm, 20 weeks 6 days Head Circumference (HC): 19.6 cm, 21 weeks 5 days Abdominal Circumference (AC): 18.2 cm, 23 weeks 1 day Femur Length (FL): 3.8 cm, 22 weeks 1 day Estimated Weight: 508 g, 69th percentile. ANATOMY Limited evaluation of anatomy due to movement and positioning. The intracranial structures, profile, face/nose/lips, 4 chamber heart and outflow tracts, stomach, abdominal wall and cord insertion, diaphragm, kidneys, bladder, and extremities were visualized and demonstrate no abnormality. Note that evaluation of lower extremities was limited due to motion. Also, limited evaluation of lumbosacral spine and transverse plane. Cervical and thoracic spine appear unremarkable. MATERNAL STRUCTURES Uterus: Unremarkable. Cervix: Long and closed. Transabdominal length 6.5 cm. Right ovary/adnexa: Unremarkable. Right ovary measures 2 x 2 x 3.3 cm. Left ovary/adnexa: Unremarkable. Left ovary measures 3 x 2.6 x 2.2 cm. Free fluid: None. IMPRESSION: 1. Jordan live intrauterine with gestational age 21 weeks 5 days based on current ultrasound. 2. Estimated weight is within expected limits for assigned dating. 3. Slightly limited anatomic survey due to motion and positioning. Specifically, limited assessment of lumbosacral spine and lower extremities. Recommend limited repeat exam to assess anatomy not well seen on current study. Visualized anatomy appears unremarkable. RADIA
== END 2019-04-07 13:41 | disposition home or self-care (01) ==
LOC: DI 13:40
PROVIDERS: ATTEND Obstetrics & Gynecology
DX: Z36.89 Encounter for other specified antenatal screening (principal)
CPT/HCPCS: 76811

== ENCOUNTER 2019-05-03 16:55 | Outpatient (CLI) | payer BC ==
[2019-05-03 17:16] LABS: HGB - HEMOGLOBIN 12.1 g/dL (12.0-16.0); MEAN CORPUSCULAR HGB CONC 32.7 g/dL (32.0-36.0); MEAN CORPUSCULAR VOLUME 82.6 fL (81.0-99.0); MEAN PLATELET VOLUME 8.3 fL (7.9-10.8); RED BLOOD COUNT 4.48 10^6/uL (4.20-5.40); RED CELL DISTRIBUTION WIDTH 13.2 % (12.0-15.0); WHITE BLOOD COUNT 11.4 x10^3/uL (4.8-10.8)
[2019-05-03 17:21] LABS: ALBUMIN 3.3 g/dL (3.2-5.5); ALBUMIN/GLOBULIN RATIO 0.8 (1.0-2.2); BILIRUBIN,TOTAL 0.4 mg/dL (0.2-1.0); CREATININE 0.6 mg/dL (0.4-1.0); TOTAL PROTEIN 7.3 g/dL (6.7-8.2)
[2019-05-03 17:22] LABS: CREATININE,URINE 146.6 mg/dL; PROTEIN/CREATININE RATIO,URINE 0.1 (<=0.2)
== END 2019-05-03 16:56 | disposition home or self-care (01) ==
LOC: LAB 16:55
PROVIDERS: ATTEND Obstetrics & Gynecology
DX: O13.9 Gestational [pregnancy-induced] hypertension without significant proteinuria, unspecified trimester (principal); Z36.89 Encounter for other specified antenatal screening
CPT/HCPCS: 36415; 80053; 82570; 84156; 85027; 86850

== ENCOUNTER 2019-05-26 07:24 | Outpatient (CLI) | payer BC ==
[2019-05-26 09:08] LABS: HGB - HEMOGLOBIN 10.7 g/dL (12.0-16.0); MEAN CORPUSCULAR HGB CONC 32.4 g/dL (32.0-36.0); MEAN CORPUSCULAR VOLUME 83.3 fL (81.0-99.0); MEAN PLATELET VOLUME 8.5 fL (7.9-10.8); RED BLOOD COUNT 3.96 10^6/uL (4.20-5.40); WHITE BLOOD COUNT 9.2 x10^3/uL (4.8-10.8)
== END 2019-05-26 07:25 | disposition home or self-care (01) ==
LOC: LAB 07:24
PROVIDERS: ATTEND Obstetrics & Gynecology
DX: Z36.89 Encounter for other specified antenatal screening (principal); O13.9 Gestational [pregnancy-induced] hypertension without significant proteinuria, unspecified trimester
CPT/HCPCS: 36415; 82950; 85027; 86850

== ENCOUNTER 2019-06-05 08:00 | Outpatient (CLI) | payer BC | END 2019-06-05 23:59 | disposition home or self-care (01) | LOC: LAB 08:00 | PROVIDERS: ATTEND Obstetrics & Gynecology | DX: O99.810 Abnormal glucose complicating pregnancy (principal); Z3A.00 Weeks of gestation of pregnancy not specified | CPT/HCPCS: 36415; 82951; 82952 ==

== ENCOUNTER 2019-07-08 07:00 | Outpatient (CLI) | payer BC ==
[2019-07-08 20:39] LABS: TRICHOMONAS VAGINALIS DNA NEGATIVE (NEGATIVE)
== END 2019-07-08 23:59 | disposition home or self-care (01) ==
LOC: LAB.R 07:00
PROVIDERS: ATTEND Obstetrics & Gynecology
DX: Z11.3 Encounter for screening for infections with a predominantly sexual mode of transmission (principal)
CPT/HCPCS: 87491; 87591; 87661; 87797

== ENCOUNTER 2019-07-25 16:33 | Inpatient (IN) | payer BC ==
[2019-07-25] MEDS: SODIUM CHLORIDE FLUSH 0.9% 10 ML SYRINGE IVP SCH (17:00)
[2019-07-25] MEDS ORDERED: miSOPROStoL 200 MCG TABLET ONE (17:08)
[2019-07-25] MEDS ORDERED: TERBUTALINE 1 MG/ML VIAL SUBQ ONE (17:08)
[2019-07-25] MEDS ORDERED: OXYTOCIN/SODIUM CHLORIDE 500 ML IV ONE (17:08)
[2019-07-25] MEDS ORDERED: LIDOCAINE-MPF 1% 30 ML VIAL ONE ×2 (17:08→22:39)
[2019-07-25] MEDS: LACTATED RINGERS 1,000 ML IV SCH ×2 (17:10→23:56)
[2019-07-25] MEDS ORDERED: LIDOCAINE-MPF 1% 30 ML VIAL ID PRN (17:12)
[2019-07-25] MEDS ORDERED: CARBOPROST TROMETHAMINE 250 MCG/ML AMP IM ONE (17:12)
[2019-07-25] MEDS ORDERED: TRANEXAMIC ACID 1,000 MG in SODIUM CHLORIDE 0.9% 100ML 100 ML IV STA (17:12)
[2019-07-25] MEDS ORDERED: OXYTOCIN/SODIUM CHLORIDE 500 ML IV PRN (17:12)
[2019-07-25] MEDS ORDERED: SODIUM CHLORIDE FLUSH 0.9% 10 ML SYRINGE IVP PRN ×2 (17:12→18:42)
[2019-07-25] MEDS ORDERED: ONDANSETRON 4 MG/2 ML VIAL IVP PRN ×2 (17:12→18:11)
[2019-07-25] MEDS ORDERED: fentaNYL 100 MCG/2 ML VIAL IVP PRN (17:12)
[2019-07-25] MEDS ORDERED: MINERAL OIL LIGHT 10 ML MC ONE (17:12)
[2019-07-25] MEDS ORDERED: miSOPROStoL 200 MCG TABLET PR ONE (17:12)
[2019-07-25] MEDS ORDERED: ACETAMINOPHEN 325 MG TABLET PO SCH (18:00)
[2019-07-25] MEDS ORDERED: ROPIVACAINE 0.2% 200 MG/100 ML BAG EP PRN (18:11)
[2019-07-25] MEDS ORDERED: diphenhydrAMINE INJ 50 MG/ML VIAL IVP PRN (18:11)
[2019-07-25] MEDS ORDERED: LACTATED RINGERS 500 ML IV ONE (18:11)
[2019-07-25] MEDS ORDERED: NALOXONE 0.4 MG/ML VIAL IVP PRN (18:11)
[2019-07-25] MEDS ORDERED: NALBUPHINE 10 MG/ML AMP IVP PRN (18:11)
[2019-07-25] MEDS ORDERED: ePHEDrine 50 MG/ML VIAL IVP PRN (18:11)
--- NOTE | 2019-07-25 18:15 | ANESTHESIA ---
Pre-Anesthesia VS, & Labs - Diagnosis active labor - Procedure CHANEL Height 5 ft 4 in Weight (kg) 96.162 kg - Is Patient ?: Yes Home Medications and Allergies Active Medications Acetaminophen (Tylenol) 650 mg PO Q6H [facility] Fentanyl (Fentanyl) 50 mcg IVP Q1H PRN PRN Reason: PAIN Lactated Ringer's (Lr) 1,000 mls @ 150 mls/hr IV .Q6H40M [facility] Last Admin: 07/25/19 17:10 Dose: 150 mls/hr Oxytocin/Sodium Chloride (Pitocin/Sodium Chloride) 500 mls @ 999 mls/hr IV PRN PRN; Protocol PRN Reason: POST- HEMORR PREVENTION Lidocaine HCl (Xylocaine-Mpf 1% Vial) 30 ml ID ONCE PRN PRN Reason: PERINEAL REPAIR Stop: 07/26/19 17:16 Ondansetron HCl (Zofran Inj) 4 mg IVP Q4H PRN PRN Reason: Nausea / Vomiting Sodium Chloride (Normal Saline Flush 0.9%) 10 ml IVP PRN PRN PRN Reason: NEEDED PER PROVIDER ORDERS Sodium Chloride (Normal Saline Flush 0.9%) 10 ml IVP 0100,0900,1700 [facility] [place] Last Admin: 07/25/19 17:00 Dose: 10 ml Pnv No.95/Ferrous Fum/Folic AC [ Tablet] 1 tab PO DAILY 12/05/16 Sertraline [Zoloft] 50 mg PO DAILY 12/05/16 raNITIdine [Zantac] 150 mg PO DAILY 12/05/16 Allergies/Adverse Reactions: Allergies Allergy/AdvReac Type Severity Reaction Status Date / Time shellfish derived AdvReac Anaphylaxis Verified 12/05/16 11:01 Anes History & Medical History - Anesthetic History Anesthesia Complications: reports: No previous complications Family history of Anesthesia Complications: Denies Family history of Malignant Hyperthermia: Denies - Medical History Cardiovascular: reports: None Pulmonary: reports: None Gastrointestinal: reports: None Urinary: reports: None Neuro: reports: None Musculoskeletal: reports: None Endocrine/Autoimmune: reports: None Blood Disorders: reports: None Skin: reports: None Smoking Status: Never smoker Psychosocial: reports: Depression Exam General: Alert, Oriented x3, Cooperative, No acute distress Dental: WNL Mouth Openin Fingerbreadth Neck Mobility: Normal Mallampati classification: III Thyromental Distance: 4-6 cm Respiratory: Lungs clear, Normal breath sounds, No respiratory distress, No accessory muscle use Cardiovascular: Regular rate, Normal S1, Normal S2, No murmurs Abdomen: Normal bowel sounds, Soft, No tenderness, No hepatospenomegaly, No masses Extremities: No clubbing, No cyanosis, No edema, Normal pulses, No tenderness/swelling Neurological: Normal gait, Normal speech, Strength at 5/5 X4 ext, Normal tone, Sensation intact, Cranial nerves 3-12 NL, Reflexes 2+ Mental/Cognitive Status: Alert/Oriented X3, Normal for patient Cognitive Status: Within normal limits Plan Anesthesia Type: Epidural Consent for Procedure(s) Verified and Reviewed: Yes Code Status: Attempt Resuscitation ASA classification: 2-Mild systemic disease Is this case an emergency?: No
[2019-07-25] MEDS ORDERED: ONDANSETRON ODT 4 MG TABLET TL PRN (18:42)
[2019-07-25] MEDS ORDERED: LABETALOL 20 MG/4 ML SYRINGE IV PRN (18:42)
--- NOTE | 2019-07-25 18:45 | HISTORY & PHYSICAL EXAMINATION ---
Admit History - Visit Reason Visit Reason: Contractions, Other - : 3 Parity: 2 Care: positive: [facility] Risk/History: positive: induced HTN, Other (History of shoulder dystocia) Complications This : positive: induced HTN Smoking Status: Never smoker - Mother's Labs Mother's Blood Type: positive: B Mother's RH: positive: Positive GBS: positive: Group B Step Negative Rubella Status: positive: Immune - Other Maternal History Other Maternal History: Hx of shoulder dystocia x2 FAS wnl; spine incomplete. Patient declines fu B pos/ Rub imm [place] 46 XX Known carrier of CF; FOB tested negative. Declines carrier testing Influenza vaccine complete TDaP complete Glucola 142; 3H OGTT wnl GBS at 36 wga HSV: denies Anticipate Meds/Allgy - Home Medications Home Medications: Ambulatory Orders Medication Instructions Recorded Confirmed Pnv No.95/Ferrous Fum/Folic AC 1 tab PO DAILY 12/05/16 12/05/16 [ Tablet] Sertraline [Zoloft] 50 mg PO DAILY 12/05/16 12/05/16 raNITIdine [Zantac] 150 mg PO DAILY 12/05/16 12/05/16 - Allergies Allergies/Adverse Reactions: Allergies Allergy/AdvReac Type Severity Reaction Status Date / Time shellfish derived AdvReac Anaphylaxis Verified 12/05/16 11:01 Review of Systems - Other Findings Other Findings: As per HPI otherwise remaining systems are negative. Physical - Abdominal Exam Vital Signs: See Centricity Mild range blood pressures Tachycardia Contraction Frequency (min/apart): Q2-3 min Contraction Intensity: positive: Moderate - Monitoring Heart Rate Baseline: 140 mod richard 15x15 accels no decels Strip Review: positive: Category I - Presentation Presentation: positive: Vertex - Vaginal Exam Membranes: positive: Membranes intact Dilation (in cm): 6 Effacement (%): 50 Station: positive: -3 Cervical Position: positive: Midposition - Speculum Exam Speculum Exam Performed: positive: No Plan for Labor - Plan For Labor Plan for Labor: 29 yo at 37w4d ega here for IOL for GHTN IOL: -Presented for outpatient cervical ripening with misoprostol 50 mcg BC x1 followed with Edgar bulb placement -Edgar passed spontaneously, now /-3 -Start pitocin induction -Consider AROM when station progresses -Consent obtained FWB: vertex, GBS neg, well grown -Cat I tracing -CEFM PAIN: Epidural administered on arrival Hx of shoulder dystociax2 Take precautions at delivery Signed [facility] consent for BTL in event of CS Anticipate
[2019-07-25 18:50] LABS: BASOPHILS % (AUTO) 0.2 %; EOSINOPHILS # (AUTO) 0.2 10^3/uL (0.0-0.7); EOSINOPHILS % (AUTO) 1.2 %; HGB - HEMOGLOBIN 12.2 g/dL (12.0-16.0); LYMPHOCYTES % (AUTO) 15.6 %; MEAN CORPUSCULAR HEMOGLOBIN 25.1 pg (27.0-31.0); MEAN CORPUSCULAR HGB CONC 31.2 g/dL (32.0-36.0); MEAN CORPUSCULAR VOLUME 80.5 fL (81.0-99.0); MONOCYTES % (AUTO) 7.9 %; NEUTROPHILS # (AUTO) 9.3 10^3/uL (1.5-6.6); NEUTROPHILS % (AUTO) 74.7 %; PLT - PLATELET COUNT 189 10^3/uL (130-450); RED BLOOD COUNT 4.86 10^6/uL (4.20-5.40); RED CELL DISTRIBUTION WIDTH 13.7 % (12.0-15.0); WHITE BLOOD COUNT 12.5 x10^3/uL (4.8-10.8)
[2019-07-25] MEDS ORDERED: LACTATED RINGERS 1,000 ML IV SCH (19:00)
--- NOTE | 2019-07-25 21:02 | PROVIDER PROGRESS NOTE ---
Subjective - Prog Note Date Prog Note Date: 07/25/19 Prog Note Time: 20:30 - Subjective Subjective: Comfortable with epidural in place. No LOF Pitocin at 5 mU/min Objective - Vital Signs/Intake & Output Reviewed Vital Signs: Yes - Objective General Appearance: positive: No acute distress Abdomen: positive: Non-tender Skin: positive: Color nml Extremities: positive: Non-tender Comments/Other: SVE 50/ballotable - Lab Results Fish Bones: 07/25/19 17:00 Other Labs: Lab Results x24hrs 07/25/19 Range/Units 17:00 WBC 12.5 H (4.8-10.8) x10^3/uL RBC 4.86 (4.20-5.40) 10^6/uL Hgb 12.2 (12.0-16.0) g/dL Hct 39.1 (37.0-47.0) % MCV 80.5 L (81.0-99.0) fL MCH 25.1 L (27.0-31.0) pg MCHC 31.2 L (32.0-36.0) g/dL RDW 13.7 (12.0-15.0) % Plt Count 189 (130-450) 10^3/uL MPV 9.0 (7.9-10.8) fL Neut # (Auto) 9.3 H (1.5-6.6) 10^3/uL Lymph # (Auto) 2.0 (1.5-3.5) 10^3/uL [place] # (Auto) 1.0 (0.0-1.0) 10^3/uL Eos # (Auto) 0.2 (0.0-0.7) 10^3/uL Baso # (Auto) 0.0 (0.0-0.1) 10^3/uL Absolute Nucleated RBC 0.00 x10^3/uL Nucleated RBC % 0.0 /100WBC Assessment/Plan - Problem List (1) Encounter for induction of labor Impression: S/p miso 50 mcg BCx1 Edgar balloon, passive removal Pitocin 5 mU/min EFM 140 mod richard 15x15 accels no decel TOCO; Q2-3 min Cat I tracing Consider AROM with progress in station Cont pitocin in interim Anticipate
[2019-07-25] MEDS ORDERED: ROPIVACAINE 0.2% PF 20ML VIAL ONE (22:37)
--- NOTE | 2019-07-25 22:52 | CONSULTATION NOTE ---
Consultation Report: RN called that patient is reporting some pressure/pain. Came into check the patient she is fairly comfortable, but is reporting feeling pressure. She has a sensory level of L10 bilaterally with intact motor function of BLE. to make her a little more comfortable. i gave her 5ml of ropivacain 0.2% plus 4ml of lidocain 1%. She reported instant relief. I did make her aware that as she gets closer to pushing, she may feel perineal pressure and pain which may not be completely relieved. She understands. But now she is comfortable.
[2019-07-26] MEDS ORDERED: TERBUTALINE 1 MG/ML VIAL SUBQ ONE ×2 (00:22→00:24)
[2019-07-26] MEDS ORDERED: CITRIC ACID/SODIUM CITRATE 15 ML UDC PO ONE ×2 (00:51→01:32)
--- NOTE | 2019-07-26 00:58 | PROVIDER PROGRESS NOTE ---
Subjective - Prog Note Date Prog Note Date: 07/26/19 Prog Note Time: 00:49 - Subjective Subjective: LATE ENTRY 2/2 COMPUTER ISSUES: Patient had shown decels that had resolved with position change. Had been at bedisde x2 with re-positioning. At current, prolonged decel reolved with d/c pitocin, fluid blus, terbutaline. FSE placed. tachycardia post terbutaline as well as maternal tachycardia. Recommended as relatively remote from delivery with SVE at 6-7/70/-2 station and likely OP presentation. EFM 180 mild richard no accels occ decels TOCO: Q2-4 min OR team called Obtaining concent Will confirm plans for BTL Cefazolin 2g IV OCTOR Objective - Vital Signs/Intake & Output Intake & Output: Intake & Output 07/23/19 07/24/19 07/25/19 07/26/19 23:59 23:59 23:59 23:59 Intake Total 1000 Balance 1000 - Lab Results Fish Bones: 07/25/19 17:00 Other Labs: Lab Results x24hrs 07/25/19 Range/Units 17:00 WBC 12.5 H (4.8-10.8) x10^3/uL RBC 4.86 (4.20-5.40) 10^6/uL Hgb 12.2 (12.0-16.0) g/dL Hct 39.1 (37.0-47.0) % MCV 80.5 L (81.0-99.0) fL MCH 25.1 L (27.0-31.0) pg MCHC 31.2 L (32.0-36.0) g/dL RDW 13.7 (12.0-15.0) % Plt Count 189 (130-450) 10^3/uL MPV 9.0 (7.9-10.8) fL Neut # (Auto) 9.3 H (1.5-6.6) 10^3/uL Lymph # (Auto) 2.0 (1.5-3.5) 10^3/uL [place] # (Auto) 1.0 (0.0-1.0) 10^3/uL Eos # (Auto) 0.2 (0.0-0.7) 10^3/uL Baso # (Auto) 0.0 (0.0-0.1) 10^3/uL Absolute Nucleated RBC 0.00 x10^3/uL Nucleated RBC % 0.0 /100WBC
[2019-07-26] MEDS ORDERED: SODIUM CHLORIDE FLUSH 0.9% 10 ML SYRINGE IVP SCH ×2 (01:00→09:00)
[2019-07-26] MEDS ORDERED: ROPIVACAINE 0.5% PF 20 ML AMPULE ONE (01:44)
[2019-07-26] MEDS ORDERED: BUPIVACAINE 0.25% PF 30 ML VIAL SUBQ ONE (02:13)
[2019-07-26] MEDS ORDERED: LACTATED RINGERS 1,000 ML IV ONE ×2 (02:14→02:33)
[2019-07-26] MEDS: KETOROLAC 30 MG/ML VIAL IVP SCH ×4 (02:30→21:24)
--- NOTE | 2019-07-26 04:09 | OPERATIVE REPORT ---
Operative Report - General Admit Date: 07/25/19 Planned Procedure: Primary low transverse and bilateral salpingectomy Pre-Op Diagnosis: IUP at 37w 4d ega, gestational hypertension, intolerance of labor Procedure Performed: Primary low transverse and bilateral salpingectomy Post Op Diagnosis: Same and delivery of term gestation - Procedure Note Primary Surgeon: Tamar Helelr MD Secondary Surgeon: Lawanda Mahmood MD Anesthesia Provider: Maria De Jesus Sebastian CRNA Anesthesia Technique: Epidural Pathology: Bilateral fallopian tubes. Placenta for routine discard IV Fluids (mL): 900 Estimated Blood Loss (mL): 650 Urine Output (mL): 150 Indications: Patient is a 29-year-old G3, P2 at 37 weeks 5 days estimated gestational age who presented for induction of labor for gestational hypertension. She received misoprostol 50 mcg BC x1 and had a Edgar balloon placement as part of outpatient cervical ripening on 07/25/2019. Later that evening, she presented at 6 cm dilation/50%/-3 station. She started Pitocin for induction reaching a max dose of 8 milliunits/min. Underwent spontaneous rupture of membranes notable for passage of clear fluid. No significant cervical traveler changer several hours of observation. Notably, there was minimal descent. tracing started to show recurrent variable decelerations. After prolonged deceleration of 6 minutes duration, there is an extended period of tachycardia with loss of moderate variability. Given remote from delivery, opted to proceed with primary low transverse . Patient had previously signed [facility] sterilization consent forms. Patient confirmed she is still committed to sterilization at this time. Findings: Normal uterus tubes and ovaries. Female infant in vertex presentation with Apgars of 8 and 9, weight pending. Complications: None - Other Other Information/Narrative: Risks benefits and alternatives of the procedure were discussed. Written informed consent was obtained. Patient was taken to the operating room where spinal anesthesia was placed and found to be adequate. She was prepped and draped in the usual sterile fashion in the dorsal supine position with a leftward tilt. Edgar catheter was in place. SCDs were in place and activated. Cefazolin 2 g IV was given as a preoperative antibiotic. Preoperative timeout was performed. A total of 20 cc of 1% lidocaine with epinephrine was injected into the suture line prior to making the incision. A Pfannenstiel incision was made in the skin with a scalpel and carried through the underlying layer of fascia in a combination of sharp and blunt dissection. The fascia was incised in the midline, and the incision was extended laterally with the Armstrong scissors. The superior aspect of the fascial incision was grasped with the Luci clamps, elevated, and the underlying rectus muscles were dissected off bluntly and sharply using the Armstrong scissors. Attention was then turned to the inferior aspect of the incision which in a similar fashion was grasped, tented up with Luci clamps, and the underlying rectus muscles dissected off bluntly and sharply using Armstrong scissors. The rectus muscles were then in the midline. The peritoneum was identified, tented up, and entered bluntly. The peritoneal incision was extended superiorly and inferiorly with good visualization of the bladder. The bladder that blade was then inserted. A bladder flap was not created. The lower uterine segment of the uterus was identified, and incised in a transverse fashion with a scalpel. The uterus was entered bluntly. The uterine incision was extended in a craniocaudal fashion by manual stretch. The bladder blade was removed. The was delivered from from vertex position. Baby was wrapped in a warm sterile towel. Delayed cord clamping was performed. After cessation of pulsations, the cord was clamped x2 and cut. The was handed off to the waiting pediatricians. The placenta was removed with manual expression. The uterus was exteriorized and cleared of all clots clots and debris via manual swipe using Ray-Danae x2. The uterine incision was then repaired in a running locked fashion using 0 Vicryl suture. The incision was reinforced with a running imbricating layer again using 0-Vicryl suture. The hysterotomy was reinforced with figure of 8 sutures x2 in order to obtain complete hemostasis.Excellent hemostasis was obtained. Attention was then turned to the left fallopian tube. It was grasped with Hawk clamps x2 and elevated. LigaSure Device was used to seal and transect the underlying mesosalpinx along the entire length of the fallopian tube until its insertion point at the cornua. The tube was then transected at the insertion point from the cornua. It was removed from the field and sent to pathology for examination. Good hemostasis was noted. Attention was then turned to the right fallopian tube. The procedure was repeated on the right side. Again, good hemostasis was noted. The uterus was returned to the abdomen. The gutters were cleared of all clots and debris. The pelvis was irrigated with warm normal saline. The uterine defect was well visualized in normal anatomic position it was noted again to be hemostatic. The peritoneum was then reapproximated with 2-0 Vicryl in a running fashion. The rectus muscles were then reapproximated using interrupted [id number] sutures using 2-0 Chromic. A small piece of Surgicel was applied between the rectus muscle and the overlying fascia inferior to the incision.Good hemostasis was noted. The fascia was then closed using 0 Vicryl in a running fashion starting from the left lateral edge to the midline. A second suture was used to close the fascia in a running fashion starting from the right lateral edge and meeting in the midline, again using 0-Vicryl. The subcutaneous tissue was then irrigated and closed using 2-0 chromic in a running subcutaneous suture. Skin was closed in a running subcuticular suture using 4-0 Monocryl. Steri-Strips were applied to reinforce the incsion and dressing was applied. Procedure was well-tolerated and without complication. Sponge lap and needle counts were correct x2. Patient was taken to recovery room in stable condition. Dr. Bashir assisted with retraction, suturing, and delivery of the infant.
[2019-07-26] MEDS ORDERED: HYDROCORTISONE 1% CREAM 28 GM TUBE PR PRN (04:18)
[2019-07-26] MEDS ORDERED: WITCH HAZEL/GLYCERIN 1 PAD TOP PRN (04:18)
[2019-07-26] MEDS ORDERED: oxyCODONE 5 MG TABLET PO PRN (04:18)
[2019-07-26] MEDS ORDERED: SIMETHICONE CHEW 80 MG TABLET PO PRN (04:18)
[2019-07-26] MEDS: ACETAMINOPHEN 500 MG TABLET PO SCH ×3 (04:48→22:25)
[2019-07-26] MEDS ORDERED: LACTATED RINGERS 1,000 ML IV SCH (05:00)
[2019-07-26] MEDS: SODIUM CHLORIDE FLUSH 0.9% 10 ML SYRINGE IVP SCH (05:41)
[2019-07-26 05:48] LABS: BASOPHILS % (AUTO) 0.4 %; EOSINOPHILS % (AUTO) 0.1 %; HGB - HEMOGLOBIN 10.4 g/dL (12.0-16.0); MEAN CORPUSCULAR HEMOGLOBIN 26.5 pg (27.0-31.0); MEAN CORPUSCULAR HGB CONC 32.4 g/dL (32.0-36.0); MEAN CORPUSCULAR VOLUME 81.9 fL (81.0-99.0); MEAN PLATELET VOLUME 8.7 fL (7.9-10.8); MONOCYTES % (AUTO) 8.4 %; NEUTROPHILS % (AUTO) 83.4 %; PLT - PLATELET COUNT 159 10^3/uL (130-450); RED BLOOD COUNT 3.92 10^6/uL (4.20-5.40); RED CELL DISTRIBUTION WIDTH 13.6 % (12.0-15.0); WHITE BLOOD COUNT 20.8 x10^3/uL (4.8-10.8)
[2019-07-26 05:51] LABS: ABNORMAL LYMPHS % (MANUAL) 0 %
[2019-07-26 06:10] LABS: BAND NEUTROPHILS % (MANUAL) 7 %; LYMPHOCYTES # (MANUAL) 2.1 10^3/uL (1.5-3.5); LYMPHOCYTES % (MANUAL) 10 %; MONOCYTES # (MANUAL) 0.8 10^3/uL (0.0-1.0)
[2019-07-26 06:11] LABS: RBC MORPHOLOGY (MULTIPLE) NORMAL APPEARANCE (NORMAL)
[2019-07-26 06:12] LABS: DIFFERENTIAL COMMENT MANUAL DIFFERENTIAL; PLATELET ESTIMATE, MANUAL NORMAL (130-450,000) (NORMAL); PLATELET MORPHOLOGY NORMAL APPEARANCE (NORMAL)
[2019-07-26] MEDS ORDERED: PHENYLEPHRINE 10 MG/ML VIAL IV ONE (14:09)
[2019-07-26] MEDS ORDERED: ONDANSETRON 4 MG/2 ML VIAL IVP ONE (14:09)
[2019-07-26] MEDS ORDERED: MORPHINE PF 5 MG/10 ML AMP IVP ONE (14:09)
[2019-07-26] MEDS ORDERED: OXYTOCIN 10 UNIT/ML VIAL IV ONE (14:09)
[2019-07-26] MEDS ORDERED: LIDOCAINE-MPF 2% 5 ML VIAL IM ONE (14:09)
[2019-07-26] MEDS ORDERED: KETOROLAC 30 MG/ML VIAL IVP ONE (14:26)
[2019-07-26] MEDS: SODIUM CHLORIDE FLUSH 0.9% 10 ML SYRINGE IVP PRN ×2 (15:31→21:24)
[2019-07-27] MEDS: IBUPROFEN 600 MG TABLET PO SCH ×2 (03:43→09:24)
[2019-07-27] MEDS ORDERED: IBUPROFEN 600 MG TABLET PO SCH ×2 (04:00→05:00)
[2019-07-27] MEDS: ACETAMINOPHEN 500 MG TABLET PO SCH (06:39)
[2019-07-27 08:45] VITALS: BP 127/72
--- NOTE | 2019-07-27 10:21 | Discharge Plan ---
Discharge Plan Problem Reviewed?: Yes Disposition: 01 Home, Self Care Condition: Good Diet: Regular Activity Restrictions: Additional Comments (Nothing in the vagina for 6 weeks: No intercourse, tampons, douching Call for: -Fever greater than 100.5 - Pain that does not improve with pain medication -Heavy bleeding in which you are soaking a pad an hour for 2 hours in a row -If your incision becomes hot, hard, red, tender, has foul-smelling fluid or opens up) Shower Restrictions: Yes (Do not scrub, use soap or lotion on incision. Pat dry) Driving Restrictions: Yes (No driving on narcotics) No Smoking: If you smoke, Please STOP! Call for help. Follow-up with: Ayanna Heller MD [Primary Care Provider] -
--- NOTE | 2019-07-27 10:32 | PROVIDER PROGRESS NOTE ---
Subjective - Prog Note Date Prog Note Date: 07/27/19 Prog Note Time: 10:30 - Subjective Subjective: Patient is up and ambulating, tolerating po, and voiding. Pain is well managed with pain medications. BF going well. Objective - Vital Signs/Intake & Output Vital Signs: Vital Signs x48h Temp Pulse Resp BP Pulse Ox 07/27/19 08:43 96 18 127/72 99 07/27/19 05:10 98.1 F 99 16 133/66 H 98 Intake & Output: Intake & Output 07/24/19 07/25/19 07/26/19 07/27/19 23:59 23:59 23:59 23:59 Intake Total 1000 Output Total 1130 Balance 1000 -1130 - Objective General Appearance: positive: No acute distress Respiratory: positive: No respiratory distress Cardiovascular: positive: Other (RR) Abdomen: positive: Non-tender, Other (FF below umbi. Incision line CDI) Skin: positive: Color nml Extremities: positive: Pedal edema (mild pretibial edema, Non tender) Neurologic/Psychiatric: positive: Oriented x3 - Lab Results Fish Bones: 07/26/19 05:19 Assessment/Plan - Problem List (5) delivery delivered Impression: POD#1 s/p LTCS/BTL Meeting goals for discharge Desires early DC HCT stable DC to home Routine dc instructions given
--- NOTE | 2019-07-27 10:34 | DISCHARGE SUMMARY ---
"Discharge Summary Admit Date: 07/25/19 Discharge Date: 07/27/19 Discharging Provider: Pina Condition at Discharge: Good Discharge Disposition: 01 Home, Self Care Discharge Facility Name: [facility] - DIAGNOSES Admission Diagnoses: IUP at 37w4d ega Gestational HTN Desires sterilization Hx of shoulder dystocia x2 Discharge Diagnoses with Status of Each Condition: Same and delivery of term gestation due to distress Bilateral salpingectomy - CONSULTS | PROCEDURES Procedures: Low transverse and bilateral salpingectomy - HOSPITAL COURSE Hospital Course: Patient is a 29-year-old G3, P2 at 37 weeks 5 days estimated gestational age who presented for induction of labor for gestational hypertension. She received misoprostol 50 mcg BC x1 and had a Edgar balloon placement as part of outpatient cervical ripening on 07/25/2019. Later that evening, she presented at 6 cm dilation/50%/-3 station. She started Pitocin for induction reaching a max dose of 8 milliunits/min. Underwent spontaneous rupture of membranes notable for passage of clear fluid. No significant cervical tire changer aircraft several hours of observation. Notably, there was minimal descent. tracing started to show recurrent variable decelerations. After prolonged deceleration of 6 minutes duration, there is an extended period of tachycardia with loss of moderate variability. Given remote from delivery, opted to proceed with primary low transverse . Patient had previously signed [facility] sterilization consent forms. Patient confirmed she is still committed to sterilization. On 07/26/2019, Patient underwent a primary low transverse and bilateral salpingectomy. She delivered a viable female infant with Apgars of 8 and 9. Procedure was uncomplicated and well-tolerated. Postoperative course was uncomplicated. By postop day 1 patient was meeting goals for discharge. 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 Routine discharge instructions were given. Patient is Rh+ and rubella immune. - ALLERGIES Allergies/Adverse Reactions: Allergies Allergy/AdvReac Type Severity Reaction Status Date / Time shellfish derived AdvReac Anaphylaxis Verified 12/05/16 11:01 - MEDICATIONS Home Medications: Ambulatory Orders Medication Instructions Recorded Confirmed Pnv No.95/Ferrous Fum/Folic AC 1 tab PO DAILY 12/05/16 12/05/16 [ Tablet] Sertraline [Zoloft] 50 mg PO DAILY 12/05/16 12/05/16 raNITIdine [Zantac] 150 mg PO DAILY 12/05/16 12/05/16 Home Medications Other | Comments: Patient declined prescriptions for [id number] medications. She was provided with a single prescription for oxycodone 5 mg p.o. every 4 hours #24, no refills - LABS Result Diagrams: 07/26/19 05:19 - FOLLOW UP Follow Up: 1 week telemedicine fu with Dr. Heller - TIME SPENT Time Spent in Discharge (Minutes): 30"
--- NOTE | 2019-07-27 11:55 | Labor Flowsheet ---
Labor Flowsheet Datetime Report Generated by CPN: 07/27/2019 11:55 Datetime: 07/27/2019 08:26 VITAL SIGNS NBP Sys/Trudy/Mean (mmHg): 127 : 72 : 85 Pulse: 96 LaborFlag: Labor Datetime: 07/26/2019 05:56 Membranes Ruptured Date/Time: 07/25/2019 22:08 Datetime: 07/26/2019 01:57 ASSESSMENT A Monitor Mode: Doppler FHR Baseline Rate : 156 Comments: FHR 156 in OR Datetime: 07/26/2019 01:45 UTERINE ACTIVITY Monitor Mode: External Frequency (min): 1.5-2.5 Quality: Moderate Duration (sec): 60-80 Pattern: Normal: <= 5 Contractions in 10 Minutes Resting Tone (Palpate): Relaxed Variability: Moderate 6-25 bpm Accelerations: 15X15 Decelerations: None Category: Category I Datetime: 07/26/2019 01:38 Exam by: McSorley Vaginal Exam Comments: unchanged Datetime: 07/26/2019 00:45 FHR Baseline Changes: Tachycardia Datetime: 07/26/2019 00:41 Communication Comments: decision made for , 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 Datetime: 07/26/2019 00:23 Tocolytics: Terbutaline 0.25mg Subcutaneous Datetime: 07/26/2019 00:15 Actions for Decelerations: Side to Side; Hands and Knees; Pitocin Off; IV Bolus; Sterile Vagi nal Exam; Provider Notified Datetime: 07/26/2019 00:14 COMMUNICATION Communication: Provider at Bedside Provider Notified (Name): McSorley Datetime: 07/26/2019 00:12 MEDICATIONS Pitocin (milliunits): Discontinued PATIENT CARE IV/Blood Work: IV Bolus Started Datetime: 07/26/2019 00:10 SpO2 (%): 100 Datetime: 07/26/2019 00:09 Patient Position/Activity: Hands-Knees Datetime: 07/26/2019 00:00 Pitocin Checklist: No More than 1 Late Deceleration Occurred in Past 30 Minutes; No More than 2 Mana iable Decelerations > 60 Seconds in Duration and decreasing >60 bpm in 30 minutes; No More than 5 [place] rine Contractions in 10 Minutes for any 20 Minute Interval; Uterus Palpates Soft between Contractions Datetime: 07/25/2019 23:34 Patient Care Comments: froggy throne position Datetime: 07/25/2019 22:44 VAGINAL EXAM Dilatation (cm): 7.0 Datetime: 07/25/2019 22:42 Anesthesia Comments: bolus dose Datetime: 07/25/2019 22:29 Temperature (C): 37.0 Datetime: 07/25/2019 22:26 PAIN Pain Scale: 7 Pain Presence: Intermittent Pain Type: Contraction Pain Coping: Breathing Through Contractions Pain Assessment Comments: "in vagina" Datetime: 07/25/2019 22:13 Effacement (%): 50 Station: -2 Vaginal Bleeding: Normal Show Cervix, Consistency: Soft Cervix, Position: Anterior Datetime: 07/25/2019 22:08 Membrane Status: Ruptured Membranes Rupture Method: Spontaneous Amniotic Fluid Color: Clear Amniotic Fluid Amount: Large Amniotic Fluid Odor: Normal Datetime: 07/25/2019 21:30 Oxygen Method: Room Air Datetime: 07/25/2019 20:36 Monitor Interventions for FHR: Ultrasound Adjusted Datetime: 07/25/2019 19:30 MATERNAL ASSESSMENT Level of Consciousness: Alert Headache: Frontal Breath Sounds, Left: Clear and Equal Breath Sounds, Right: Clear and Equal Nausea/Vomiting: Denies RUQ Epigastric Pain: Denies Datetime: 07/25/2019 19:26 Pain Location: Abdomen Datetime: 07/25/2019 19:25 Maternal Comments: Assumed care of pt at this time Datetime: 07/25/2019 18:52 I/O Interventions: Edgar Cath Inserted Datetime: 07/25/2019 17:54 Epidural Procedure: Loading Dose Datetime: 07/25/2019 17:38 PROCEDURE TIME OUT Procedure Verify: Correct Patient Identity; Accurate Procedure Consent Form; Agreement on Procedure to be Done; Correct Patient Position ANESTHESIA Epidural Positioning: Sitting
== END 2019-07-27 11:45 | disposition home or self-care (01) | DRG 785 ==
LOC: WFO 16:33 → FBP 16:35 → WFO 17:11 → FBP 17:12
PROVIDERS: ADMIT Obstetrics & Gynecology; ATTEND Obstetrics & Gynecology
PROC: 3E033VJ Introduction of Other Hormone into Peripheral Vein, Percutaneous Approach (ICD-10-PCS; 2019-07-25)
PROC: 0UT70ZZ Resection of Bilateral Fallopian Tubes, Open Approach (ICD-10-PCS; 2019-07-26)
PROC: 10D00Z1 Extraction of Products of Conception, Low, Open Approach (ICD-10-PCS; principal; 2019-07-26 01:34)
DX: O13.3 Gestational [pregnancy-induced] hypertension without significant proteinuria, third trimester (principal); Z37.0 Single live birth; O76 Abnormality in fetal heart rate and rhythm complicating labor and delivery; O32.4XX0 Maternal care for high head at term, not applicable or unspecified; O75.0 Maternal distress during labor and delivery; R00.0 Tachycardia, unspecified; O99.283 Endocrine, nutritional and metabolic diseases complicating pregnancy, third trimester; E04.1 Nontoxic single thyroid nodule; Z30.2 Encounter for sterilization; Z3A.37 37 weeks gestation of pregnancy; Z87.59 Personal history of other complications of pregnancy, childbirth and the puerperium
CPT/HCPCS: 36415; 85025; A9270; J2795; J7120; 59200; 88302

== ENCOUNTER 2020-01-05 07:00 | Outpatient (CLI) | payer BC | END 2020-01-05 23:59 | disposition home or self-care (01) | LOC: LAB.R 07:00 | PROVIDERS: ATTEND Obstetrics & Gynecology | DX: N39.0 Urinary tract infection, site not specified (principal) | CPT/HCPCS: 87086; 87181 ==

== ENCOUNTER 2020-02-09 10:41 | Outpatient (CLI) | payer BC ==
[2020-02-09 11:10] LABS: HGB - HEMOGLOBIN 11.4 g/dL (12.0-16.0); MEAN CORPUSCULAR HGB CONC 32.8 g/dL (32.0-36.0); MEAN CORPUSCULAR VOLUME 79.3 fL (81.0-99.0); MEAN PLATELET VOLUME 8.6 fL (7.9-10.8); RED BLOOD COUNT 4.39 10^6/uL (4.20-5.40); RED CELL DISTRIBUTION WIDTH 14.1 % (12.0-15.0); WHITE BLOOD COUNT 4.2 x10^3/uL (4.8-10.8)
[2020-02-09 11:41] LABS: THYROID STIMULATING HORMONE 1.12 uIU/mL (0.34-5.60)
[2020-02-09 11:43] LABS: FREE T4 (FREE THYROXINE) 0.92 ng/dL (0.58-1.64)
[2020-02-09 12:52] LABS: RHEUMATOID FACTOR NEGATIVE (Negative)
[2020-02-11 13:07] LABS: ANA SCREEN NEGATIVE (NEGATIVE)
== END 2020-02-09 10:42 | disposition home or self-care (01) ==
LOC: LAB 10:41
PROVIDERS: ATTEND Obstetrics & Gynecology
DX: M35.9 Systemic involvement of connective tissue, unspecified (principal); I73.00 Raynaud's syndrome without gangrene; R94.6 Abnormal results of thyroid function studies; E04.2 Nontoxic multinodular goiter
CPT/HCPCS: 36415; 81599; 83520; 84439; 84443; 85027; 86038; 86140; 86376; 86430; 86800

== ENCOUNTER 2020-02-24 08:00 | Outpatient (CLI) | payer BC ==
[2020-02-24 22:30] LABS: CANDIDA GROUP DNA NEGATIVE (NEGATIVE); CANDIDA KRUSEI DNA NEGATIVE (NEGATIVE); TRICHOMONAS VAGINALIS DNA NEGATIVE (NEGATIVE)
== END 2020-02-24 08:01 | disposition home or self-care (01) ==
LOC: LAB.R 08:00
PROVIDERS: ATTEND Advanced Practice Midwife
DX: N89.8 Other specified noninflammatory disorders of vagina (principal)
CPT/HCPCS: 87661; 87801

== ENCOUNTER 2020-04-20 18:49 | Outpatient (CLI) | payer BC ==
--- OUTSIDE RECORDS SUMMARY | 2020-04-25 01:47 | EXTERNAL MEDICAL SUMMARY RPT | Continuity of Care Document ---
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 [facility] 2020-02-09 10:41 SYSTEMIC INVOLVEMENT OF CONNECTIVE [facility] TISSUE, UNSPECIFIED 2020-02-09 10:41 ABNORMAL RESULTS OF THYROID [facility] FUNCTION STUDIES 2020-02-24 00:00 OTHER SPECIFIED NONINFLAMMATORY [facility] DISORDERS OF VAGINA 2020-02-24 08:00 OTHER SPECIFIED NONINFLAMMATORY [facility] DISORDERS OF VAGINA Allergies date description facility SULFA (SULFONAMIDE ANTIBIOTICS) [facility] DRONABINOL Merged with [facility] Results Social History date description facility [id number]
== END 2020-04-20 18:50 | disposition home or self-care (01) ==
LOC: LAB 18:49
PROVIDERS: ATTEND Advanced Practice Midwife
DX: E04.2 Nontoxic multinodular goiter (principal); E20.9 Hypoparathyroidism, unspecified
CPT/HCPCS: 82310

== ENCOUNTER 2020-06-12 09:12 | Outpatient (CLI) | payer BC ==
[2020-06-14 16:06] LABS: THYROGLOBULIN 0.4 ng/mL
== END 2020-06-12 09:13 | disposition home or self-care (01) ==
LOC: LAB 09:12
PROVIDERS: ATTEND Internal Medicine Endocrinology, Diabetes & Metabolism
DX: C73 Malignant neoplasm of thyroid gland (principal)
CPT/HCPCS: 36415; 84432; 86800

== ENCOUNTER 2020-07-02 08:00 | Outpatient (CLI) | payer BC | END 2020-07-02 23:59 | disposition home or self-care (01) | LOC: LAB 08:00 | PROVIDERS: ATTEND Obstetrics & Gynecology | DX: C73 Malignant neoplasm of thyroid gland (principal) | CPT/HCPCS: 36415; 84443; 86800 ==

== ENCOUNTER 2021-01-08 17:45 | Outpatient (CLI) | payer BC | END 2021-01-08 17:46 | disposition home or self-care (01) | LOC: LAB 17:45 | PROVIDERS: ATTEND Obstetrics & Gynecology | DX: Z01.812 Encounter for preprocedural laboratory examination (principal) | CPT/HCPCS: 36415; 84702 ==

== ENCOUNTER 2021-02-12 11:08 | Outpatient (CLI) | payer BC ==
--- NOTE | 2021-02-12 15:30 | Ultrasound Report ---
PROCEDURE: Pelvic w/Transvaginal INDICATIONS: dysfunctional uterine bleeding TECHNIQUE: Real-time scanning was performed of the pelvic organs, with image documentation. Additional endovagi nal scanning was necessary due to incomplete visualization of the adnexal and endometrial structures by transabdominal scanning. COMPARISON: None. FINDINGS: No pathologic free abdominal or pelvic fluid. Uterus: Uterus is enlarged measuring 13.2 x 5.1 x 5 point cm. 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 The endometrium measures 10.4 mm in the right horn and 10.1 mm in the left horn. Right late ral intramural fibroid measuring 1.1 x 1.0 x 1.2 cm. Ovaries: Right ovary measures 4.0 x 2.3 x 3.0 cm. The left ovary measures 3.5 x 2.1 x 2.9 cm. Ovarie s are grossly unremarkable although only seen transabdominally, due to position/anatomy. IMPRESSION: Bicornuate appearance of the uterus. Uterine fibroid as above Reviewed by: Matias Vo MD on 02/12/2021 3:29 PM PDT Approved by: Matias Vo MD on 02/12/2021 3:29 PM PDT Station ID: [id number]
== END 2021-02-12 11:09 | disposition home or self-care (01) ==
LOC: DI 11:08
PROVIDERS: ATTEND Obstetrics & Gynecology
DX: N93.8 Other specified abnormal uterine and vaginal bleeding (principal); D25.1 Intramural leiomyoma of uterus; Q51.3 Bicornate uterus

== ENCOUNTER 2023-04-10 09:58 | Outpatient (CLI) | payer OTHER ==
[2023-04-10 10:18] LABS: BASOPHILS # (AUTO) 0.1 10^3/uL (0.0-0.1); EOSINOPHILS # (AUTO) 0.3 10^3/uL (0.0-0.7); EOSINOPHILS % (AUTO) 5.1 %; HCT - HEMATOCRIT 39.8 % (37.0-47.0); LYMPHOCYTES # (AUTO) 2.2 10^3/uL (1.5-3.5); LYMPHOCYTES % (AUTO) 35.2 %; MEAN CORPUSCULAR HEMOGLOBIN 26.5 pg (27.0-31.0); MEAN CORPUSCULAR HGB CONC 32.7 g/dL (32.0-36.0); MEAN CORPUSCULAR VOLUME 81.2 fL (81.0-99.0); MONOCYTES # (AUTO) 0.5 10^3/uL (0.0-1.0); MONOCYTES % (AUTO) 8.4 %; NEUTROPHILS # (AUTO) 3.2 10^3/uL (1.5-6.6); NEUTROPHILS % (AUTO) 50.1 %; PLT - PLATELET COUNT 206 10^3/uL (130-450); RED CELL DISTRIBUTION WIDTH 12.5 % (12.0-15.0); WHITE BLOOD COUNT 6.3 x10^3/uL (4.8-10.8)
[2023-04-10 10:31] LABS: CHOL/HDL RATIO 3.2 (<4.4); CHOLESTEROL 167 mg/dL; CRP - C-REACTIVE PROTEIN 0.6 mg/dL (<0.5); HDL CHOLESTEROL 52 mg/dL; LDL CHOLESTEROL,CALCULATED 90 mg/dL; LDL/HDL RATIO 1.7 (<4.4); TRIGLYCERIDES 126 mg/dL (48-352); VLDL CHOLESTEROL 25 mg/dL
[2023-04-10 10:47] LABS: THYROID STIMULATING HORMONE 0.17 uIU/mL (0.34-5.60)
[2023-04-10 10:53] LABS: FERRITIN 38.9 ng/mL (11.0-306.8)
[2023-04-10 11:41] LABS: ESTIMATED AVERAGE GLUCOSE 105 mg/dL (70-100); HEMOGLOBIN A1c% 5.3 % (4.27-6.07)
== END 2023-04-10 09:59 | disposition home or self-care (01) ==
LOC: LAB 09:58
PROVIDERS: ATTEND Nurse Practitioner
DX: C73 Malignant neoplasm of thyroid gland (principal); R41.9 Unspecified symptoms and signs involving cognitive functions and awareness
CPT/HCPCS: 36415; 80061; 82728; 83036; 83721; 84439; 84443; 85025; 85651; 86140; 86800

== ENCOUNTER 2023-09-14 09:45 | Outpatient (CLI) | payer BC ==
[2023-09-14 10:00] LABS: BASOPHILS # (AUTO) 0.1 10^3/uL (0.0-0.1); BASOPHILS % (AUTO) 0.7 %; EOSINOPHILS # (AUTO) 0.4 10^3/uL (0.0-0.7); EOSINOPHILS % (AUTO) 4.6 %; HCT - HEMATOCRIT 40.9 % (37.0-47.0); HGB - HEMOGLOBIN 13.2 g/dL (12.0-16.0); LYMPHOCYTES # (AUTO) 2.5 10^3/uL (1.5-3.5); LYMPHOCYTES % (AUTO) 29.9 %; MEAN CORPUSCULAR HEMOGLOBIN 26.2 pg (27.0-31.0); MEAN CORPUSCULAR HGB CONC 32.3 g/dL (32.0-36.0); MEAN CORPUSCULAR VOLUME 81.2 fL (81.0-99.0); MEAN PLATELET VOLUME 8.2 fL (7.9-10.8); MONOCYTES # (AUTO) 0.6 10^3/uL (0.0-1.0); MONOCYTES % (AUTO) 6.5 %; NEUTROPHILS # (AUTO) 4.9 10^3/uL (1.5-6.6); NEUTROPHILS % (AUTO) 57.9 %; PLT - PLATELET COUNT 247 10^3/uL (130-450); RED BLOOD COUNT 5.04 10^6/uL (4.20-5.40); RED CELL DISTRIBUTION WIDTH 12.7 % (12.0-15.0); WHITE BLOOD COUNT 8.5 x10^3/uL (4.8-10.8)
[2023-09-14 10:01] LABS: BILIRUBIN,URINE NEGATIVE (NEGATIVE); GLUCOSE, URINE (UA) NEGATIVE (NEGATIVE); KETONES,URINE (UA) NEGATIVE (NEGATIVE); LEUKOCYTE ESTERASE, URINE NEGATIVE (NEGATIVE); NITRITE,URINE NEGATIVE (NEGATIVE); OCCULT BLOOD,URINE NEGATIVE (NEGATIVE); PROTEIN,URINE NEGATIVE (NEGATIVE); UROBILINOGEN,URINE 0.2 (NORMAL) E.U./dL (NORMAL)
[2023-09-14 10:02] LABS: CLARITY,URINE CLEAR (CLEAR)
[2023-09-14 10:13] LABS: BACTERIA,URINE None Seen /HPF (None Seen); RBC,URINE None Seen /HPF (0-5); SQUAMOUS EPITHELIAL CELL,UR MOD Squamous (<= Few); WBC,URINE 0-3 /HPF (0-5)
[2023-09-14 10:18] LABS: ALBUMIN 4.5 g/dL (3.2-5.5); ALBUMIN/GLOBULIN RATIO 1.4 (1.0-2.2); BILIRUBIN,TOTAL 0.6 mg/dL (0.2-1.0); CALCIUM 9.3 mg/dL (8.5-10.3); CREATININE 0.7 mg/dL (0.6-1.3); TOTAL PROTEIN 7.7 g/dL (6.4-8.9)
== END 2023-09-14 09:46 | disposition home or self-care (01) ==
LOC: LAB 09:45
PROVIDERS: ATTEND Nurse Practitioner
DX: N20.0 Calculus of kidney (principal); N28.9 Disorder of kidney and ureter, unspecified
CPT/HCPCS: 36415; 80053; 81001; 85025